=== PATIENT | female | born 1930 | race Caucasian/White ===

== ENCOUNTER → 2016-04-17 | Outpatient (CLI) | payer MEDICARE, OTHER ==
[~2016-04-17] MED LIST: ACHYD1T PO; ALN70T PO; AZIT1PAC8 PO; AZTH250C PO; CEFD300C3 PO; CEPH500C PO; CIPR250S2 PO; CYCL10TA45 PO; CYCL5TAB PO; HSCO125 PO; HYDR-3874 PO; HYDR118S10 PO; HYDR1TAB75 PO; NAPR500T3 PO; NFPRILOC40 PO; NITR100C3 PO; NITR50CA4 PO; OMEP20CA12 PO; PHEN100T26 PO; PHEN200T27 PO; TAMS0.4C9 PO; TMSL.4C PO
--- OUTSIDE RECORDS SUMMARY | 2016-04-17 08:37 | XMS REPORT | Continuity of Care Document ---
Author Author [facility] Organization [facility] Address Unknown Phone Unavailable Care Team Providers Care Quality Control Industrial Engineer Name Role Phone BRENDEN MCNEIL MD PCP Insurance Providers Payer Name Policy Number Subscriber Name Relationship W[employer] Medicare [id number] Chance Anderson Self / Same As Patient Comm Crossover Enter Ins Name [id number] Chance Anderson Self / Same As Patient Advance Directives Directive Response Recorded Date/Time Advance Directives No 06/26/14 6:42am Health Care Power of It Service Continuity Supervisor No 06/26/14 6:42am Organ Donor No 06/26/14 6:42am Resuscitation Status Full Code 06/26/14 6:42am Problems Medical Problems Problem Onset Date Status Neck sprain Unknown Active Abdominal pain Unknown Active Nausea and vomiting Unknown Active Urinary tract infectious disease Unknown Active generalized weakness Unknown Active Urinary tract infection Unknown Active Medications Medication Dose Route Sig Days/Qty Instructions Order Date Discontinued Date Status Azithromycin 1 Each PO X 1 DOSE 04/09/11 01/28/13 Discontinued Azithromycin 1 Tab PO DAILY 5 Days 04/09/11 01/28/13 Discontinued Omeprazole 20 Mg PO DAILY 04/09/11 06/12/13 Discontinued Alendronate Sodium 70 Mg PO WEEKLY weekly on Wednesday04/09/11 01/10/14 Discontinued Cefdinir (Omnicef) 1 Each PO TWICE A DAY 10 Days 04/09/11 01/28/13 Discontinued Acetaminophen/Hydrocodone Bitart 1 Each PO EVERY 4HRS PRN 20 Qty 01/28/13 Discontinued Acetaminophen/Hydrocodone Bitart 1 Tab PO EVERY 4HRS PRN PAIN 90 Qty 01 /22/14 04/16/14 Discontinued Cyclobenzaprine Hcl 10 Mg PO THREE TIMES A DAY PRN MUSCLE SPASMS 90 Qty 03/08/13 05/31/13 Discontinued Tamsulosin HCl 0.4 Mg PO DAILY@1800 14 Qty 05/31/13 06/27/13 Discontinued Acetaminophen/Hydrocodone Bitart 1-2 Ea PO EVERY 4HRS PRN PAIN 30 Qty 05/31/13 06/27/13 Discontinued Hyoscyamine Sulfate 0.125-0.25 Mg PO EVERY 4HRS PRN SPASMS 30 Qty 05/3106/27/13 Discontinued Phenazopyridine HCl 100 Mg PO THREE TIMES A DAY PRN PAIN 30 Qty 06/27/13 Discontinued Ciprofloxacin 250 Mg PO TWICE A DAY 7 Days 05/31/13 06/12/13 Discontinued Omeprazole 20 Mg PO DAILY 06/12/13 01/10/14 Discontinued Nitrofurantoin Macrocrystals 1 Cap PO TWICE A DAY 14 Qty 06/14/13 Discontinued Acetaminophen/Hydrocodone Bitart 1-2 Tab PO EVERY 4HRS PRN PAIN 30 Qty 06/14/13 06/27/13 Discontinued Acetaminophen/Hydrocodone Bitart (Lorcet Plus) 1 Each PO Q4HR PRN For PAIN 20 Days 06/27/13 01/10/14 Discontinued Cephalexin Monohydrate (Keflex) 1 Each PO THREE TIMES A DAY 30 Qty 06/19/14 Discontinued Phenazopyridine HCl 1 Each PO THREE TIMES A DAY PRN PAIN 15 Qty 06/19/14 Discontinued Nitrofurantoin Macrocrystal 100 Mg PO TWICE A DAY 14 Qty 06/26/14 Active Hydrocodone/Acetaminophen 1-2 Each PO EVERY 4HRS PRN PAIN 30 Qty Active Tamsulosin HCl 0.4 Mg PO BEDTIME 20 Qty 06/26/14 Active Social History Social History Problem Response Recorded Date/Time Alcohol Use Denies Use 06/26/2014 6:42am Recreational Drug Use No 06/26/2014 6:42am Recent Foreign Travel No 06/26/2014 6:42am Sexually Transmitted Disease No 06/26/2014 6:42am HIV/AIDS No 06/26/2014 6:42am Smoking Status Never a Smoker 06/26/2014 6:43am Query Response Start Date Stop Date Smoking Status Never a Smoker Hospital Discharge Instructions No hospital discharge instructions. Plan of Care No plan of care. Functional Status No functional status results. Allergies, Adverse Reactions, Alerts Allergen Type Severity Reaction Status Last Updated Penicillins ([id number]) Allergy Unknown NAUSEA Active 05/31/13 Sulfa (Sulfonamide Antibiotics) ([id number]) Allergy Mild Active metronidazole ([id number]) Adverse Reaction Mild Active 03/06/13 Immunizations Name Given Type Date of Pneumonia Vaccine 01/15/11 Historical Date of Influenza Vaccine 12/20/13 Historical Tetanus Booster (TDap) Unknown Historical Vital Signs Acute Vital Signs Vital Response Date/Time Temperature (Fahrenheit) 97.5 degrees F (97.6 - 99.5) Temperature (Calculated Celsius) 36.60717 degrees C (36.4 - 37.5) Temperature Source Temporal Pulse Rate (adult) 86 bpm (60 - 90) Respiratory Rate 16 bpm (12 - 24) O2 Sat by Pulse Oximetry 94 % (88 - 100) Blood Pressure 128/81 mm Hg Height (Feet) 5 feet Height (Inches) 3.00 inches Height (Calculated Centimeters) 160.541447 cm Weight (Pounds) 186 pounds Weight (Ounces) 0.0 oz Weight (Calculated Grams) 76597.182 gm Weight (Calculated Kilograms) 84.704813 kilograms Calculated BMI 30.95 Results Laboratory Results Test Name Result Units Flags Reference Collection Date/Time Result Date/ Time Comments Sodium Level 146 MMOL/L H 135-145 06/06/2014 9:10am 06/06/2014 9:33am Potassium Level 3.7 MMOL/L 3.6-5.0 06/06/2014 9:10a06/06/2014 9:33am Chloride Level 108 MMOL/L H 98-107 06/06/2014 9:10am 06/06/2014 9:33am Carbon Dioxide Level 26 MMOL/L 21-32 06/06/2014 9:10am 06/06/2014 9: 33am Blood Urea Nitrogen 18 MG/DL 7-18 06/06/2014 9:10am 06/06/2014 9:33am Creatinine 0.70 MG/DL 0.60-1.30 06/06/2014 9:10a06/06/2014 9:33am BUN/Creatinine Ratio 26 06/06/2014 9:10a06/06/2014 9:33am Estimat Glomerular Filtration Rate > 60 06/06/2014 9:2014 9:33am GFR INTERPRETIVE DATA UNITS FOR ESTIMATED GFR (eGFR): mL/min/1.73 M2 REFERENCE RANGE FOR ESTIMATED GFR (eGFR) eGFR NORMAL eGFR >60 MODERATELY DECREASED eGFR 30-59 SEVERLY DECREASED eGFR 15-29 KIDNEY FAILURE <15 (OR DIALYSIS) Glucose Level 92 MG/DL 70-105 06/06/2014 9:10a06/06/2014 9:33am Calcium Level 9.0 MG/DL 8.5-10.1 06/06/2014 9:10a06/06/2014 9:33am White Blood Count 4.7 10^3/uL 4.3-11.0 06/19/2014 1:0506/19/2014 1: 32pm Red Blood Count 4.59 10^6/uL 4.35-5.85 06/19/2014 1:06/19/2014 1: 32pm Hemoglobin 13.5 G/DL 11.5-16.0 06/19/2014 1:06/19/2014 1:32pm Hematocrit 41 % 35-52 06/19/2014 1:06/19/2014 1:32pm Mean Corpuscular Volume 88 FL 80-99 06/19/2014 1:06/19/2014 1: 32pm Mean Corpuscular Hemoglobin 29 PG 25-34 06/19/2014 1:06/19/2014 1: 32pm Mean Corpuscular Hemoglobin Concent 33 G/DL 32-36 06/19/2014 1:06/2014 1:32pm Red Cell Distribution Width 14.5 % 10.0-14.5 06/19/2014 1:2014 1:32pm Platelet Count 196 10^3/uL 130-400 06/19/2014 1:06/19/2014 1:32pm Mean Platelet Volume 10.7 FL H 7.4-10.4 06/19/2014 1:06/19/2014 1: 32pm Neutrophils (%) (Auto) 62 % 42-75 06/19/2014 1:06/19/2014 1:32pm Lymphocytes (%) (Auto) 25 % 12-44 06/19/2014 1:06/19/2014 1:32pm Monocytes (%) (Auto) 10 % 0-12 06/19/2014 1:06/19/2014 1:32pm Eosinophils (%) (Auto) 3 % 0-10 06/19/2014 1:06/19/2014 1:32pm Basophils (%) (Auto) 1 % 0-10 06/19/2014 1:06/19/2014 1:32pm Neutrophils # (Auto) 2.9 X 10^3 1.8-7.8 06/19/2014 1:06/19/2014 1: 32pm Lymphocytes # (Auto) 1.2 X 10^3 1.0-4.0 06/19/2014 1:06/19/2014 1: 32pm Monocytes # (Auto) 0.5 X 10^3 0.0-1.0 06/19/2014 1:06/19/2014 1: 32pm Eosinophils # (Auto) 0.1 10^3/uL 0.0-0.3 06/19/2014 1:06/19/2014 1 :32pm Basophils # (Auto) 0.0 10^3/uL 0.0-0.1 06/19/2014 1:06/19/2014 1: 32pm Sodium Level 142 MMOL/L 135-145 06/19/2014 1:06/19/2014 1:52pm Potassium Level 4.2 MMOL/L 3.6-5.0 06/19/2014 1:06/19/2014 1:52pm SPECIMEN IS 2+ HEMOLYZED. Chloride Level 109 MMOL/L H 98-107 06/19/2014 1:pm 06/19/2014 1:52pm Carbon Dioxide Level 23 MMOL/L 21-32 06/19/2014 1:05pm 06/19/2014 1: 52pm Blood Urea Nitrogen 20 MG/DL H 7-18 06/19/2014 1:05pm 06/19/2014 1:52pm Creatinine 0.65 MG/DL 0.60-1.30 06/19/2014 1:05pm 06/19/2014 1:52pm BUN/Creatinine Ratio 31 06/19/2014 1:05pm 06/19/2014 1:52pm Estimat Glomerular Filtration Rate > 60 06/19/2014 1:05pm 2014 1:52pm GFR INTERPRETIVE DATA UNITS FOR ESTIMATED GFR (eGFR): mL/min/1.73 M2 REFERENCE RANGE FOR ESTIMATED GFR (eGFR) eGFR NORMAL eGFR >60 MODERATELY DECREASED eGFR 30-59 SEVERLY DECREASED eGFR 15-29 KIDNEY FAILURE <15 (OR DIALYSIS) Glucose Level 104 MG/DL 70-105 06/19/2014 1:05pm 06/19/2014 1:52pm Calcium Level 9.2 MG/DL 8.5-10.1 06/19/2014 1:05pm 06/19/2014 1:52pm Procedures Procedure Status Date Provider(s) Extracorporeal shock wave lithotripsy (ESWL) completed 06/26/14 KATHARINE WINSLOW MD Encounters Encounter Location Date/Time Registered Surgical Day Care Via [facility] 06/26/14 6:05am Registered Clinic Via [facility] 06/19/14 12:47pm Registered Clinic Via [facility] 06/06/14 8:38am
--- NOTE | 2016-04-18 20:18 | ECHOCARDIOGRAPHY REPORT ---
PROCEDURE PHYSICIAN: BRUNILDA PRICE DATE OF PROCEDURE: 04/17/2016 TWO DIMENSIONAL ECHOCARDIOGRAM REPORT PRIMARY PHYSICIAN: OTHER PHYSICIAN: REFERRING PHYSICIAN: Dr. Hercules ORDERING PHYSICIAN: INDICATION FOR THE PROCEDURE: 1. Hypertension. 2. Palpitations. MEASUREMENTS DERIVED VALUES LV DIAMETER (LAX) NORMALS NORMALS Diastolic 3.2 (3.6-5.2) Eject. Fract. 50% (60%+/-6%) Systolic (2.3-3.9) Diastolic Vol. % Shortening (0.22-0.42) Systolic Vol. Aortic Root IVS THICKNESS Diastolic 1.2 (0.6-1.1) LVPW THICKNESS Diastolic 1 (0.6-1.1) LA DIAMETER Systolic 4.3 (2.1-3.7) FINDINGS: 1. Technically suboptimal study. 2. The left ventricle is normal in size with mild hypertrophy noted at the base of the septum. Systolic function evaluation showed subtle hypokinesia at the inferior wall. Estimated ejection fraction 50%. 3. The left atrium is dilated. No clot or thrombus were seen within the left atrium. 4. The right atrium and right ventricle are normal in size. No clot or thrombus were seen within the right side. 5. Mitral valve is calcified with mild mitral regurgitation noted by color Doppler flow. No mitral valve prolapse. No mitral valve stenosis. 6. Aortic valve leaflets were not well visualized. No significant aortic valve stenosis or regurgitation was seen. 7. Tricuspid valve is normal in morphology with mild tricuspid regurgitation noted by color Doppler flow. Doppler across tricuspid valve estimated pulmonary artery pressure of 28+ right atrial pressure. 8. Pulmonic valve is functioning normally. 9. No pericardial effusion. IN CONCLUSION: 1. Mild left ventricular hypertrophy noted at the base of the septum. Systolic function is preserved with ejection fraction 50%. Subtle hypokinesia at the inferior wall. 2. Left atrial dilatation. 3. 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 Aortic valve leaflets were not well visualized. No significant aortic stenosis or regurgitation was seen. 4. Tricuspid valve regurgitation. 5. Estimated pulmonary artery pressure of 35 mmHg. Job ID: [id number] Dictated Date: 04/17/2016 16:57:00 Solutions Executive Security Date: 04/18/2016 20:15:06 / nikky
== END ==
LOC: CARD 08:33
PROVIDERS: ATTEND Internal Medicine Cardiovascular Disease
DX: I10 Essential (primary) hypertension (principal); R00.2 Palpitations; E66.9 Obesity, unspecified; R94.31 Abnormal electrocardiogram [ECG] [EKG]
CPT/HCPCS: 93306

== ENCOUNTER → 2016-04-29 | Outpatient (CLI) | payer MEDICARE, OTHER ==
[~2016-04-29] MED LIST changes: +CATHETER FLUSH 10 ML SYR IV PRN; +REGADENOSON 0.4 MG/5 ML SYR (LEXISCAN) IV ONE
--- OUTSIDE RECORDS SUMMARY | 2016-04-29 08:30 | XMS REPORT | Continuity of Care Document ---
Author Author [facility] Organization [facility] Address Unknown Phone Unavailable Care Team Providers Care Plate Grainer Apprentice Name Role Phone BRENDEN MCNEIL MD PCP Insurance Providers Payer Name Policy Number Subscriber Name Relationship [employer] Medicare [id number] Chance Anderson Self / Same As Patient Comm Crossover Enter Ins Name [id number] Chance Anderson Self / Same As Patient Advance Directives Directive Response Recorded Date/Time Advance Directives No 06/26/14 6:42am Health Care Power of Farm Mechanic No 06/26/14 6:42am Organ Donor No 06/26/14 [...] Type Severity Reaction Status Last Updated Penicillins ([id number]) Allergy Unknown NAUSEA Active 05/31/13 Sulfa (Sulfonamide Antibiotics) ([id number]) Allergy Mild Active metronidazole ([id number]) Adverse Reaction Mild Active 03/06/13 Immunizations Name Given Type Date of Pneumonia Vaccine 01/15/11 Historical Date of Influenza Vaccine 12/20/13 Historical Tetanus Booster (TDap) Unknown Historical Vital Signs Acute Vital Signs Vital Response Date/Time Temperature (Fahrenheit) 97.5 degrees F (97.6 - 99.5) Temperature (Calculated Celsius) 36.21708 degrees C (36.4 - 37.5) Temperature Source Temporal Pulse Rate (adult) 86 bpm (60 - 90) Respiratory Rate 16 bpm (12 - 24) O2 Sat by Pulse Oximetry 94 % (88 - 100) Blood Pressure 128/81 mm Hg Height (Feet) 5 feet Height (Inches) 3.00 inches Height (Calculated Centimeters) 160.100789 cm Weight (Pounds) 186 pounds Weight (Ounces) 0.0 oz Weight (Calculated Grams) 74580.182 gm Weight (Calculated Kilograms) 84.191899 kilograms Calculated BMI 30.95 Results Laboratory Results [...] Location Date/Time Registered Surgical Day Care [facility] 06/26/14 6:05am Registered Clinic [facility] 06/19/14 12:47pm Registered Clinic [facility] 06/06/14 8:38am
[2016-04-29 09:35] VITALS: BP 162/82
[2016-04-29 09:40] VITALS: BP 148/85
[2016-04-29 09:42] VITALS: BP 132/64
--- NOTE | 2016-05-01 16:06 | STRESS TEST ---
PROCEDURE PHYSICIAN: BRUNILDA PRICE DATE OF PROCEDURE: 04/29/2016 LEXISCAN MYOVIEW STRESS TEST REPORT: REFERRING PHYSICIAN: Dr. Hercules. INDICATION FOR THE PROCEDURE: 1. Hypertension. 2. Palpitations. BASELINE HEART RATE: 69 BASELINE BLOOD PRESSURE: 162/82 BASELINE EKG: Sinus rhythm with occasional PVC. IN SUMMARY: The patient was injected with 9.78 mCi of technetium 99 Myoview and the resting images were obtained. Then the patient received 0.4 mg of Lexiscan followed by 31.8 mCi of technetium 99 Myoview. Throughout the test, there were no EKG changes. The resting and stress images were reviewed and compared in the short axis, horizontal long axis, and vertical long axis views. Review of the images showed breast attenuation with reversible ischemia involving the mid to apical anterolateral wall and inferolateral wall. SSS is 8, SDS 8. Transient ischemic dilatation with TID value 1.29. On the gated images, the left ventricle appeared to be prominent with hypokinesia involving the lateral wall. Calculated ejection fraction 58%. IN CONCLUSION: 1. The patient tolerated Lexiscan well. 2. Breast attenuation with mild ischemia involving the basal to mid anterolateral and inferolateral wall. 3. Transient ischemic dilatation with TID value 1.29. 4. Slightly prominent left ventricle with hypokinesia involving the lateral wall. Calculated ejection fraction 58%. Job ID: [id number] Dictated Date: 04/29/2016 15:49:00 Logistics Technician Date: 04/30/2016 08:39:27 / nikky SPARKS
== END ==
LOC: CARD 08:27
PROVIDERS: ATTEND Internal Medicine Cardiovascular Disease
DX: I10 Essential (primary) hypertension (principal); R00.2 Palpitations; R94.31 Abnormal electrocardiogram [ECG] [EKG]; E66.9 Obesity, unspecified
CPT/HCPCS: 78452; 93017

== ENCOUNTER 2016-05-04 07:38 | Day surgery (SDC) | payer MEDICARE, OTHER ==
[2016-05-04] VITALS (11 sets, daily range): BP systolic 129–158; BP diastolic 68–88
[~2016-05-04] VITALS: Ht 161.3 cm; Wt 83.9 kg
[~2016-05-04 07:38] MED LIST changes: -CATHETER FLUSH 10 ML SYR IV PRN; -REGADENOSON 0.4 MG/5 ML SYR (LEXISCAN) IV ONE
--- OUTSIDE RECORDS SUMMARY | 2016-05-04 07:42 | XMS REPORT | Continuity of Care Document ---
Author Author [facility] Organization [facility] Address Unknown Phone Unavailable Care Team Providers Care Tour Agent Name Role Phone BRENDEN MCNEIL MD PCP Insurance Providers Payer Name Policy Number Subscriber Name Relationship [employer] Medicare [id number] Chance Anderson Self / Same As Patient Comm Crossover Enter Ins Name [id number] Chance Anderson Self / Same As Patient Advance Directives Directive Response Recorded Date/Time Advance Directives No 06/26/14 6:42am Health Care Power of Finance And Administration Manager No 06/26/14 6:42am Organ Donor No 06/26/14 [...] Type Severity Reaction Status Last Updated Penicillins ([id number]) Allergy Unknown NAUSEA Active 05/31/13 Sulfa (Sulfonamide Antibiotics) ([id number]) Allergy Mild Active metronidazole ([id number]) Adverse Reaction Mild Active 03/06/13 Immunizations Name Given Type Date of Pneumonia Vaccine 01/15/11 Historical Date of Influenza Vaccine 12/20/13 Historical Tetanus Booster (TDap) Unknown Historical Vital Signs Acute Vital Signs Vital Response Date/Time Temperature (Fahrenheit) 97.5 degrees F (97.6 - 99.5) Temperature (Calculated Celsius) 36.55731 degrees C (36.4 - 37.5) Temperature Source Temporal Pulse Rate (adult) 86 bpm (60 - 90) Respiratory Rate 16 bpm (12 - 24) O2 Sat by Pulse Oximetry 94 % (88 - 100) Blood Pressure 128/81 mm Hg Height (Feet) 5 feet Height (Inches) 3.00 inches Height (Calculated Centimeters) 160.737567 cm Weight (Pounds) 186 pounds Weight (Ounces) 0.0 oz Weight (Calculated Grams) 39021.182 gm Weight (Calculated Kilograms) 84.621603 kilograms Calculated BMI 30.95 Results Laboratory Results [...] Location Date/Time Registered Surgical Day Care [facility] 06/26/14 6:05am Registered Clinic Via [facility] 06/19/14 12:47pm Registered Clinic Via [facility] 06/06/14 8:38am
[2016-05-04] MEDS ORDERED: HEParin (CATH LAB) 2,000 ML IV ONE (07:53)
[2016-05-04] MEDS ORDERED: LIDOCAINE 1% INJ 20 ML (XYLOCAINE) VIAL ONE (07:53)
[2016-05-04] MEDS ORDERED: NS IV 1000 ML 1,000 ML ONE (07:53)
[2016-05-04] MEDS ORDERED: NS IV 1000 ML 1,000 ML IV SCH ×2 (08:30→11:54)
[2016-05-04 08:40] LABS: BILIRUBIN,URINE NEGATIVE (NEGATIVE); KETONES,URINE NEGATIVE (NEGATIVE); LEUKOCYTE ESTERASE ,URINE 1+ (NEGATIVE); NITRITE,URINE NEGATIVE (NEGATIVE); PH,URINE 5 (5-9); PROTEIN,URINE NEGATIVE (NEGATIVE); UROBILINOGEN,URINE NORMAL (NORMAL)
[2016-05-04 08:41] LABS: MEAN PLATELET VOLUME 11.1 FL (7.4-10.4); RED BLOOD COUNT 4.71 10^6/uL (4.35-5.85); WHITE BLOOD COUNT 4.1 10^3/uL (4.3-11.0)
[2016-05-04 08:51] LABS: INR 1.1 (0.8-1.4); PROTHROMBIN TIME PATIENT 14.1 SEC (12.2-14.7)
--- NOTE | 2016-05-04 08:51 | Diagnostic Imaging Report ---
Portable AP view of the chest. INDICATION: Shortness of breath, palpitations. FINDINGS: The heart size is moderately enlarged. There is mild interstitial thickening likely related to scarring but no significant vascular congestion, focal consolidation, or pulmonary edema. No effusion or pneumothorax. The mediastinum and lisandra appear similar to 11/08/2014. Cervical spine fusion hardware seen. Surgical clips in the upper right abdomen noted. IMPRESSION: Cardiomegaly. Dictated by: Dictated on workstation # [id number]
[2016-05-04 08:59] LABS: ALANINE AMINOTRANSFERASE 15 U/L (0-55); ALBUMIN 3.7 G/DL (3.2-4.5); ANION GAP 10 MMOL/L (5-14); ASPARTATE AMINO TRANSFERASE 19 U/L (5-34); BILIRUBIN,TOTAL 0.8 MG/DL (0.1-1.0); BLOOD UREA NITROGEN 16 MG/DL (7-18); BUN/CREATININE RATIO 21; CALCIUM 9.1 MG/DL (8.5-10.1); CARBON DIOXIDE 27 MMOL/L (21-32); CHLORIDE 107 MMOL/L (98-107); CHOLESTEROL 193 MG/DL (< 200); CREATININE SERUM 0.76 MG/DL (0.60-1.30); DIRECT LDL 102 MG/DL (1-129); GFR ESTIMATED > 60; GLUCOSE 83 MG/DL (70-105); POTASSIUM 3.9 MMOL/L (3.6-5.0); SODIUM 144 MMOL/L (135-145); TOTAL PROTEIN 6.2 G/DL (6.4-8.2); TRIGLYCERIDES 76 MG/DL (<150); VLDL CHOLESTEROL 15 MG/DL (5-40)
--- NOTE | 2016-05-04 10:48 | Cardiac Procedure Note-CS/ASA ---
Pre-Procedure Note Pre-Op Procedure Note H&P Reviewed The H&P was reviewed, patient examined and no changes noted. Date H&P Reviewed: May 04, 2016 Time H&P Reviewed: 10:47 Conscious Sedation Pre-Proced Time Reviewed: 10:47 ASA Class: 3 Airway Mallampati Classification: ([place] appropriate class) I. II. III, IV Lungs Heart ASA score ASA 1: a normal healthy patient ASA 2: a patient with a mild systemic disease (mid diabetes, controlled hypertension, obesity x ASA 3: a patient with a severe systemic disease that limits activity (angina , COPD, prior Myocardial infarction) ASA 4: a patient with an incapacitating disease that is a constant threat to life (CHF, renal failure) ASA 5: a moribund patient not expected to survive 24 hrs. (ruptured aneurysm) ASA 6: a declared brain patient whose organs are being harvested. For emergent operations, add the letter E after the classification Grade 3 Sedation Plan: Analgesia, Amnesia, Plan communicated to team members, Discussed options with patient/fam, Discussed risks with patient/fam Note The patient is an appropriate candidate to undergo the planned procedure, sedation, and anesthesia. The patient immediately re-assessed prior to indication. BRUNILDA PRICE MD May 04, 2016 10:47
[2016-05-04] MEDS ORDERED: MIDAZOLAM 5 MG/5 ML (VERSED) VIAL ONE (11:09)
[2016-05-04] MEDS ORDERED: fentaNYL INJECTION 100 MCG/2 ML AMP ONE (11:09)
--- NOTE | 2016-05-04 11:55 | Discharge Inst-Post CATH ---
Discharge Inst-CATH Post Cardiac Cath D/C Inst Follow Up/Plan Appointment with Dr. Paula's office in 2-4 weeks CARDIAC CATH DISCHARGE INSTRUCTIONS *Hold Metformin for 48 hours post heart cath. ACTIVITY * Go Home directly and rest. * Limit activity of the leg (or wrist if it was used) for 7 days including aerobics, swimming, jogging, bicycling, etc. * Restrict stair-climbing for 7 days if possible, if not, climb up with your non -cath leg, then bring together on the same step. * Avoid lifting, pushing, pulling or excessive movement of the affected extremity for 7 days. * Customary sexual activity may be resumed after 2 days-use caution not to use a position that strains or causes pain to the affected extremity. * No driving for 24 hours. * NO SMOKING. * Avoid straining for bowel movements for 7 days. * Gentle walking on level ground is allowed. * Returning to work will depend on the type of procedure and the results. Your doctor will discuss this with you. CALL YOUR DOCTOR FOR ANY OF THE FOLLOWING: *If bleeding from the puncture site occurs- Apply gentle pressure to site with clean cloth and call your doctor or EMS. * If a knot or lump forms under the skin, increases in size, or causes pain. * If bruising appears to be worsening or moving further down your leg instead of disappearing. * Temperature above 101 F. CARE OF YOUR GROIN INCISION; * Bruising or purple discoloration of the skin near the puncture site is common. * You may shower only, no bathtub bathing for 5 days. Be careful to avoid slipping as your leg may feel stiff. * If a closure device was used on your femoral artery, please see the attached guide regarding care of the device and your leg. * REMOVE the dressing from your groin the next day after your procedure in the shower. CARE OF YOUR WRIST INCISION; * Bruising or purple discoloration of the skin near the puncture site is common. * You may shower. * DO NOT submerge wrist. * Remove dressing in 24 hours. BRUNILDA PAULA MD May 04, 2016 11:55
[2016-05-04] MEDS ORDERED: PATIENT MAY USE OWN MEDS, ALL PO SCH (12:00)
--- NOTE | 2016-05-04 19:00 | DISCHARGE SUMMARY ---
PROCEDURE PHYSICIAN: BRUNILDA PRICE DATE OF PROCEDURE: 05/04/2016 REFERRING PHYSICIAN: Dr. Hercules. BRIEF HISTORY: Mrs. Anderson is an 86-year-old lady with recurrent chest pain, had an abnormal stress test. She was scheduled for left heart catheterization, possible PTCA. PROCEDURE NOTE: After explaining the procedure to the patient, all pros and cons were explained. All questions were answered. The patient signed a consent, then she was placed on the cardiac catheterization laboratory. The right groin was prepped in a sterile fashion. Local anesthesia applied. A 6-[place] Island[place] sheath was placed in the right femoral artery. I was unable to advance the J-wire across the iliac artery. I used a [employer] wire, with a Olivia right. Reach up to aorta and aortic arch appeared to be prominent. I was unable to intubate the right coronary artery. Exchanged over a long J-wire into Olivia left and left coronary angiogram was done. Then the pigtail catheter advanced to the left ventricular cavity. Pressure was measured. Pullback LV to aorta. Thoracic aortogram was done. Then I pulled the catheter down to the abdominal aorta. An abdominal aortogram was done. At that point, I advanced a long J-wire again. 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 At the end of the procedure, sheath was removed. Mynx device deployed. Hemostasis achieved. FINDINGS: HEMODYNAMICS: LV pressure 126/14, end-diastolic pressure 14, aortic pressure 130/64, mean of 92. ANATOMY: 1. LEFT MAIN CORONARY ARTERY: The left main coronary artery is bifurcating to left anterior descending and left circumflex artery with no obstructive disease. 2. LEFT ANTERIOR DESCENDING ARTERY: The left anterior descending artery is moderate in size. 40% stenosis in the proximal LAD. 40 to 50% stenosis at the mid LAD, nonobstructive disease. 3. LEFT CIRCUMFLEX ARTERY: The left circumflex artery is moderate in size with mild . Dominant artery, nonobstructive disease. 4. 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 5. LEFT VENTRICULOGRAM: No left ventriculogram was done. Left ventricular end-diastolic pressure is normal. 6. THORACIC AORTOGRAM/AORTIC ROOT ANGIOGRAM: Aortogram/aortic root angiogram showed prominent ascending aorta. No dissection or aneurysm. 7. ABDOMINAL AORTOGRAM: Abdominal aortogram was done to evaluate the bifurcation and the iliac artery. There is a small infrarenal abdominal aortic aneurysmal dilatation. Atherosclerotic plaque was noted. 40 to 50% stenosis at the right common iliac artery, nonobstructive disease. CONCLUSION: 1. 40% stenosis at the proximal LAD. 40 to 50% stenosis at the mid LAD, nonobstructive disease. 2. Dominant circumflex artery with no obstructive disease. 3. 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 4. Slightly prominent ascending aorta and aortic arch. 5. Small aneurysmal dilatation in the abdominal aorta infrarenally with mild to moderate disease at the right iliac artery, nonobstructive disease. DISCUSSION AND RECOMMENDATION: Medical therapy is recommended. No intervention is warranted. FINAL DIAGNOSES: 1. Chest pain, nonspecific etiology. 2. Coronary artery disease. 3. Hypertension. 4. Hyperlipidemia. Job ID: [id number] Dictated Date: 05/04/2016 12:00:15 Pattern And Chain Maker Date: 05/04/2016 18:59:38/[place]
== END 2016-05-04 16:03 | disposition home or self-care (01) ==
LOC: CATH 07:38
PROVIDERS: ATTEND Internal Medicine Cardiovascular Disease
DX: R07.89 Other chest pain (principal); R94.39 Abnormal result of other cardiovascular function study; I70.0 Atherosclerosis of aorta; I25.10 Atherosclerotic heart disease of native coronary artery without angina pectoris; I10 Essential (primary) hypertension; E78.5 Hyperlipidemia, unspecified; E66.9 Obesity, unspecified; Z68.32 Body mass index [BMI] 32.0-32.9, adult
CPT/HCPCS: 36415; 71010; 75625; 80053; 80061; 81000; 85027; 85610; 85730; 87081; 93458; 93567

== ENCOUNTER → 2016-07-09 | Outpatient (CLI) | payer MEDICARE, OTHER ==
--- NOTE | 2016-07-09 13:51 | Diagnostic Imaging Report ---
PROCEDURE: CT abdomen and pelvis without contrast. TECHNIQUE: Multiple contiguous axial images were obtained through the abdomen and pelvis without the use of intravenous contrast. INDICATION: Bilateral lower quadrant pain. FINDINGS: The heart size is enlarged. No pericardial effusion. Mitral valve annular calcifications are seen. The lung bases are clear. The liver, the spleen, the pancreas, and the adrenals appear unremarkable for an unenhanced exam. Cholecystectomy clips are seen. The right kidney demonstrates a lower pole nonobstructive stone measuring 4 mm. Low-attenuation lesions in the kidneys are similar to a 2015 CT scan suggestive of cysts. The abdominal aorta demonstrates mild aneurysmal dilatation measuring up to 2.7 cm just proximal to the aortic bifurcation. The colon demonstrates moderate to large amounts of fecal material. No bowel obstruction. Numerous diverticula are seen in the sigmoid and descending colon. No diverticulitis. No significant free fluid or fluid collection in the abdomen or pelvis is seen. There is prominent left convexity scoliosis of the lumbar spine. Degenerative changes in the discs and facet joints are seen. There is minimal hematoma in the right groin probably related to prior procedure. IMPRESSION: 1. Diverticulosis. No diverticulitis. 2. A 4 mm nonobstructive stone in the lower pole of the left kidney. 3. 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 Dictated by: Dictated on workstation # [id number]
== END ==
LOC: RAD 12:16
PROVIDERS: ATTEND Physician Assistant
DX: R10.9 Unspecified abdominal pain (principal); R94.31 Abnormal electrocardiogram [ECG] [EKG]; I10 Essential (primary) hypertension; R00.2 Palpitations; R60.0 Localized edema; K57.30 Diverticulosis of large intestine without perforation or abscess without bleeding; N20.0 Calculus of kidney; I71.4 Abdominal aortic aneurysm, without rupture
CPT/HCPCS: 74176

== ENCOUNTER → 2016-10-06 | Outpatient (CLI) | payer MEDICARE, OTHER ==
--- NOTE | 2016-10-06 20:30 | Diagnostic Imaging Report ---
EXAMINATION: Ultrasound of the left breast. INDICATION: Left breast pain. FINDINGS: The diagnostic mammogram performed earlier today failed to show any acute abnormality of the left breast. On this study, there is no discrete solid or cystic mass identified. There is no sign of an abscess either. The microcalcifications in the mid lateral aspect of the left breast seen on mammogram could not be identified on this study. Those microcalcifications are indeterminate. A stereotactic biopsy will be recommended to exclude malignancy. IMPRESSION: 1. There is no evidence for a solid mass or for an acute abnormality to account for the patient's left breast pain. 2. The microcalcifications seen on mammogram could not be identified. These findings are indeterminate but suspicious for malignancy. A stereotactic biopsy will be recommended. 3. These results were discussed with JORGE Cano. ACR BI-RADS Category 4: Suspicious abnormality. Dictated by: Dictated on workstation # [id number]
--- NOTE | 2016-10-07 06:56 | Diagnostic Imaging Report ---
Digital bilateral diagnostic mammogram with tomosynthesis. INDICATION: Left breast pain. This study was compared to prior exams of 07/01/2007, and at this time the patient does complain of pain in the left breast. There are scattered fibroglandular densities in both breasts which could obscure a lesion. These do not appear to have changed significantly since the prior exam. 15 cm from the left nipple there is a group of microcalcifications but there is no acute abnormality of the left breast to account for the patient's pain. IMPRESSION: 15 cm from the nipple there is a group of microcalcifications. Ultrasound is pending for further evaluation. ACR BI-RADS Category 0: Incomplete. (Needs additional imaging evaluation). Result letter will be mailed to the patient. Note: At least 10% of breast cancer is not imaged by mammography. Dictated on workstation # [id number]
== END ==
LOC: RAD 10:33
PROVIDERS: ATTEND Internal Medicine
DX: Z12.31 Encounter for screening mammogram for malignant neoplasm of breast (principal); R92.0 Mammographic microcalcification found on diagnostic imaging of breast; N64.4 Mastodynia
CPT/HCPCS: 76642; 77066

== ENCOUNTER → 2016-10-14 | Outpatient (CLI) | payer MEDICARE, OTHER ==
[~2016-10-14] VITALS: Ht 161.3 cm; Wt 83.9 kg
[~2016-10-14] MED LIST changes: +LIDOCAINE 1% INJ 20 ML (XYLOCAINE) VIAL INJ ONE; -NAPR500T3 PO; +NAPR500T4 PO; +NS (IVPB) 100 ML ONE
[2016-10-14 10:05] VITALS: BP 128/72
[2016-10-14 11:35] VITALS: BP 124/69
--- NOTE | 2016-10-15 22:42 | Diagnostic Imaging Report ---
Stereotactic biopsy left breast INDICATION: Abnormal mammogram The recent diagnostic mammogram performed on 10/06/16 noted a group of microcalcifications deep in the lateral aspect of the left breast. These microcalcifications were deemed to be indeterminate and stereotactic biopsy was recommended to exclude malignancy. Following aseptic preparation of the skin and administration of local anesthesia the area in question was biopsied using a stereotactic device. Multiple samples were obtained. The specimen radiograph reveals that some of the calcification in question were included. Following the procedure a clip was inserted into the biopsy site. However, the clip did not deploy. A second clip was inserted but it did not deploy either. On the post procedure mammogram performed at a separate workstation there are still a few calcifications present in the area of the biopsy. These could prove as a landmark if the specimen is indeed related to malignant process. The patient tolerated the procedure well and was dismissed in good condition. IMPRESSION: There has been a successful stereotactic biopsy of the calcifications in question in the lateral aspect of the left breast. A final pathology report is pending. Dictated by: Dictated on workstation # [id number]
== END ==
LOC: RAD 09:31
PROVIDERS: ATTEND Nurse Practitioner
DX: R92.0 Mammographic microcalcification found on diagnostic imaging of breast (principal)
CPT/HCPCS: 19081; 88305

== ENCOUNTER → 2016-12-17 | Outpatient (CLI) | payer MEDICARE, OTHER ==
[~2016-12-17] MED LIST changes: -LIDOCAINE 1% INJ 20 ML (XYLOCAINE) VIAL INJ ONE; +NAPR500T3 PO; -NAPR500T4 PO; -NS (IVPB) 100 ML ONE
--- NOTE | 2016-12-17 19:38 | Diagnostic Imaging Report ---
PA and lateral views of the chest. INDICATION: Cough. FINDINGS: The lungs are hyperinflated. Interstitial prominence appears to be chronic with no definitive congestion or patty pulmonary edema. The heart size is moderately enlarged. No effusion or pneumothorax. The mediastinum and lisandra appear unremarkable. Surgical clips in the upper abdomen seen. IMPRESSION: COPD. Cardiomegaly. Dictated by: Dictated on workstation # [id number]
== END ==
LOC: RAD 14:28
PROVIDERS: ATTEND Internal Medicine
DX: J44.9 Chronic obstructive pulmonary disease, unspecified (principal); I51.7 Cardiomegaly
CPT/HCPCS: 71020

== ENCOUNTER → 2017-04-16 | Outpatient (CLI) | payer MEDICARE, OTHER ==
[~2017-04-16] MED LIST changes: +NAPR-915 PO; -NAPR500T3 PO
--- NOTE | 2017-04-16 14:52 | Diagnostic Imaging Report ---
INDICATION: Six-month followup of left breast calcifications. Patient had calcifications in the left breast stereotactically biopsied with a benign result. COMPARISON: 10/06/2016 and 04/05/2015. TECHNIQUE: Digital diagnostic mammography was performed of the left breast with a Computer Aided Detection (CAD) system. FINDINGS: There has been reduction in calcifications in the upper outer left breast status post biopsy. No clip is present. The parenchymal pattern is stable. There is a benign intraparenchymal lymph node present. No new calcifications are seen. The axillae are unremarkable. IMPRESSION: Stable left mammogram, status post stereotactic biopsy. The patient should return in 6 months for bilateral mammography. ACR BI-RADS Category 2: Benign findings. Result letter will be mailed to the patient. Note: At least 10% of breast cancer is not imaged by mammography. Dictated by: Dictated on workstation # [id number]
== END ==
LOC: RAD 08:12
PROVIDERS: ATTEND Nurse Practitioner
DX: R92.1 Mammographic calcification found on diagnostic imaging of breast (principal)

== ENCOUNTER → 2017-05-21 | Outpatient (CLI) | payer MEDICARE, OTHER | LOC: CARD 10:49 | PROVIDERS: ATTEND Internal Medicine Cardiovascular Disease | DX: I10 Essential (primary) hypertension (principal); E66.9 Obesity, unspecified; R00.2 Palpitations; R60.0 Localized edema; R09.81 Nasal congestion; R06.00 Dyspnea, unspecified; I08.3 Combined rheumatic disorders of mitral, aortic and tricuspid valves | CPT/HCPCS: 93306 ==

== ENCOUNTER 2017-07-05 21:00 | Outpatient (CLI) | payer MEDICARE, OTHER | END 2017-07-06 06:42 | disposition home or self-care (01) | LOC: SLEEP 21:00 | PROVIDERS: ATTEND Internal Medicine Cardiovascular Disease | DX: G47.33 Obstructive sleep apnea (adult) (pediatric) (principal) | CPT/HCPCS: 95811 ==

== ENCOUNTER 2017-09-01 19:59 | Outpatient (CLI) | payer MEDICARE, OTHER | END 2017-09-02 07:05 | disposition home or self-care (01) | LOC: SLEEP 19:59 | PROVIDERS: ATTEND Nurse Practitioner | DX: G47.33 Obstructive sleep apnea (adult) (pediatric) (principal) | CPT/HCPCS: 95811 ==

== ENCOUNTER → 2017-11-29 | Outpatient (CLI) | payer MEDICARE, OTHER ==
--- NOTE | 2017-11-29 12:25 | Diagnostic Imaging Report ---
INDICATION: Routine screening. COMPARISON: 10/06/2016 and 04/05/2015. TECHNIQUE: 2D and 3D bilateral screening mammography was performed with CAD. FINDINGS: Scattered fibroglandular densities are identified bilaterally. Scattered benign-appearing parenchymal and vascular calcifications are noted. Benign-appearing nodular densities are stable bilaterally, consistent with intramammary lymph nodes. No spiculated mass or malignant appearing microcalcifications are seen. The axillae are unremarkable. IMPRESSION: No mammographic features suspicious for malignancy are identified. ACR BI-RADS Category 2: Benign findings. Result letter will be mailed to the patient. Note: At least 10% of breast cancer is not imaged by mammography. Dictated by: Dictated on workstation # [id number]
== END ==
LOC: RAD 09:03
PROVIDERS: ATTEND Nurse Practitioner
DX: Z12.31 Encounter for screening mammogram for malignant neoplasm of breast (principal)
CPT/HCPCS: 77067

== ENCOUNTER 2018-01-04 10:23 | Outpatient (RCR) | payer MEDICARE, OTHER ==
[2018-02-11] MEDS ORDERED: ONDA4TAB11 PO (03:28)
== END 2018-04-04 | disposition home or self-care (01) ==
LOC: CARD 10:23
PROVIDERS: ATTEND Internal Medicine Cardiovascular Disease
DX: I10 Essential (primary) hypertension (principal); E66.9 Obesity, unspecified; R00.2 Palpitations; R06.00 Dyspnea, unspecified; R09.81 Nasal congestion
CPT/HCPCS: 93225; 93226

== ENCOUNTER 2018-02-11 01:04 | Observation (INO) | payer MEDICARE, OTHER ==
[~2018-02-11] VITALS: Ht 165.1 cm; Wt 86.6 kg
[2018-02-11] MEDS ORDERED: NS IV 1000 ML 1,000 ML IV SCH (01:10)
--- NOTE | 2018-02-11 01:14 | ED GI ---
General Stated Complaint: STOMACH ACHE Source of Information: Patient Exam Limitations: No Limitations History of Present Illness Date Seen by Provider: Feb 11, 2018 Time Seen by Provider: 01:05 Initial Comments Patient presents to ER by private conveyance with chief complaint that late last night around 9 or 10:00 at night she began to have nausea vomiting and diarrhea with a acute pain in her epigastric region. She's had her gallbladder out before. No other abdominal surgeries. She says that she called her but he was already in the other side of the house sleep so she called ambulance. She wanted to make sure nothing was wrong. She has no history of coronary artery disease but she was having some achiness in her chest last week after she got up out of a chair and again tonight as she was vomiting her chest ached. She denies any fevers chills cough rash or recent constipation. She says her family is been down over the holidays and they all are sick with similar GI bugs. Allergies and Home Medications Allergies Coded Allergies: Sulfa (Sulfonamide Antibiotics) (Unverified Allergy, Mild, 06/14/13) Penicillins (Unverified Allergy, Unknown, NAUSEA, 05/31/13) metronidazole (Unverified Adverse Reaction, Mild, 03/06/13) states caused "growths in mouth" Home Medications Cyclobenzaprine HCl 5 Mg Tablet, 5 MG PO Q8H Prescribed by: ATIYA COFFEY on 11/08/142253 Hydrocodone/Acetaminophen 1 Each Tablet, 1-2 EACH PO Q4H PRN for PAIN Prescribed by: CHRISTY NAVARRETE on 06/26/14857 Naproxen 500 Mg Tablet, 500 MG PO BID Prescribed by: ATIYA COFFEY on 11/08/142253 Nitrofurantoin Macrocrystal 50 Mg Capsule, 100 MG PO BID Prescribed by: CHRISTY NAVARRETE on 06/26/14857 Tamsulosin HCl 0.4 Mg Cap.er.24h, 0.4 MG PO HS Prescribed by: CHRISTY NAVARRETE on 06/26/14857 Patient Home Medication List Home Medication List Reviewed: Yes Review of Systems Review of Systems Constitutional: No chills, No fever; malaise EENTM: No Blurred Vision, No Double Vision Respiratory: Denies Cough, Denies Shortness of Air Cardiovascular: See HPI, Chest Pain; Denies Edema, Denies Irregular Heart Rate , Denies Syncope Gastrointestinal: Denies Abdomen Distended; Abdominal Pain; Denies Blood Streaked Stools, Denies Constipated; Diarrhea, Nausea; Denies Poor Appetite, Denies Poor Fluid Intake; Vomiting Genitourinary: Denies Burning, Denies Discharge Musculoskeletal: No back pain, No joint pain Skin: No change in color, No pruritus, No rash Psychiatric/Neurological: Denies Headache, Denies Numbness Past Moauunk-Swlgxc-Wagzdr Hx Patient Social History Alcohol Use: Denies Use Recreational Drug Use: No Smoking Status: Never a Smoker Recent Foreign Travel: No Contact w/Someone Who Travel: No Immunizations Up To Date Tetanus Booster (TDap): Unknown Date of Pneumonia Vaccine: Jan 15, 2015 Date of Influenza Vaccine: Dec 20, 2013 Past Medical History Abdominal, Eye Surgery, Hysterectomy, Neurological, Orthopedic, Renal Traumatic Brain Injury Reproductive Disorders: No Female Reproductive Disorders: Denies [employer] History: Hysterectomy Sexually Transmitted Disease: No HIV/AIDS: No Kidney Stones Abdominal Hernia, Gastroesophageal Reflux Arthritis Cataract Loss of Vision: Denies Hearing Impairment: Denies Adverse Reaction/Blood Tranf: No Family Medical History Cancer 03 MOTHER 09 SISTER Family history: Asthma 03 MOTHER Family history: Cardiovascular disease 09 SISTER Family history: Coronary thrombosis 09 SISTER Family history: Diabetes mellitus 03 FATHER History of - respiratory disease 03 MOTHER 09 BROTHER Physical Exam Vital Signs Vital Signs - First Documented 02/11/18 01:08 Temp 99.2 Pulse 90 Resp 8 B/P (MAP) 160/84 Pulse Ox 100 O2 Delivery Room Air Capillary Refill : Height/Weight/BMI Height: 5'3.50" Weight: 185lbs. 0.0oz. 83.594375ld; 32.3 BMI Method:Estimated General Appearance: mild distress, obese HEENT: PERRL/EOMI, normal ENT inspection, pharynx normal (moderately dry oropharynx) Respiratory: chest non-tender, lungs clear, normal breath sounds, no respiratory distress, no accessory muscle use Cardiovascular: normal peripheral pulses, regular rate, rhythm, no edema Peripheral Pulses: 2+ Radial Pulses (R), 2+ Radial Pulses (L) Gastrointestinal: normal bowel sounds, non tender, soft Extremities: normal range of motion, non-tender, normal inspection, normal capillary refill Neurologic/Psychiatric: alert, normal mood/affect, oriented x 3 Skin: normal color, warm/dry Focused Exam Lactate Level 02/11/18 01:09: Lactic Acid Level 1.10 Lactic Acid Level Laboratory Tests Test 02/11/18 01:09 Lactic Acid Level 1.10 MMOL/L (0.50-2.00) Progress/Results/Core Measures Results/Orders Lab Results Laboratory Tests Test 02/11/18 01:09 02/11/18 01:39 02/11/18 02:44 Range/Units White Blood Count 8.0 4.3-11.0 10^3/uL Red Blood Count 4.86 4.35-5.85 10^6/uL Hemoglobin 14.3 11.5-16.0 G/DL Hematocrit 44 35-52 % Mean Corpuscular Volume 90 80-99 FL Mean Corpuscular Hemoglobin 29 25-34 PG Mean Corpuscular Hemoglobin Concent 33 32-36 G/DL Red Cell Distribution Width 14.7 H 10.0-14.5 % Platelet Count 162 130-400 10^3/uL Mean Platelet Volume 10.6 H 7.4-10.4 FL Neutrophils (%) (Auto) 84 H 42-75 % Lymphocytes (%) (Auto) 5 L 12-44 % Monocytes (%) (Auto) 9 0-12 % Eosinophils (%) (Auto) 2 0-10 % Basophils (%) (Auto) 0 0-10 % Neutrophils # (Auto) 6.7 1.8-7.8 X 10^3 Lymphocytes # (Auto) 0.4 L 1.0-4.0 X 10^3 Monocytes # (Auto) 0.7 0.0-1.0 X 10^3 Eosinophils # (Auto) 0.1 0.0-0.3 10^3/uL Basophils # (Auto) 0.0 0.0-0.1 10^3/uL Neutrophils % (Manual) 85 % Lymphocytes % (Manual) 4 % Monocytes % (Manual) 6 % Eosinophils % (Manual) 2 % Band Neutrophils 3 % Blood Morphology Comment NORMAL Prothrombin Time 14.0 12.2-14.7 SEC INR Comment 1.1 0.8-1.4 Activated Partial Thromboplast Time 31 24-35 SEC Sodium Level 146 H 135-145 MMOL/L Potassium Level 4.2 3.6-5.0 MMOL/L Chloride Level 106 98-107 MMOL/L Carbon Dioxide Level 25 21-32 MMOL/L Anion Gap 15 H 5-14 MMOL/L Blood Urea Nitrogen 21 H 7-18 MG/DL Creatinine 0.77 0.60-1.30 MG/DL Estimat Glomerular Filtration Rate > 60 BUN/Creatinine Ratio 27 Glucose Level 107 H 70-105 MG/DL Lactic Acid Level 1.10 0.50-2.00 MMOL/L Calcium Level 9.2 8.5-10.1 MG/DL Corrected Calcium 9.1 8.5-10.1 MG/DL Magnesium Level 2.5 H 1.8-2.4 MG/DL Total Bilirubin 0.8 0.1-1.0 MG/DL Aspartate Amino Transf (AST/SGOT) 26 5-34 U/L Alanine Aminotransferase (ALT/SGPT) 18 0-55 U/L Alkaline Phosphatase 83 40-136 U/L Troponin I < 0.30 <0.30 NG/ML Total Protein 7.4 6.4-8.2 GM/DL Albumin 4.1 3.2-4.5 GM/DL Lipase 21 8-78 U/L Glucometer 79 70-110 MG/DL Urine Color YELLOW Urine Clarity SLIGHTLY CLOUDY Urine pH 8 5-9 Urine Specific [place] 1.015 L 1.016-1.022 Urine Protein 1+ H NEGATIVE Urine Glucose (UA) NEGATIVE NEGATIVE Urine Ketones 2+ H NEGATIVE Urine Nitrite NEGATIVE NEGATIVE Urine Bilirubin NEGATIVE NEGATIVE Urine Urobilinogen 4 H NORMAL MG/DL Urine Leukocyte Esterase 1+ H NEGATIVE Urine RBC (Auto) 3+ H NEGATIVE Urine RBC 5-10 H /HPF Urine WBC 0-2 /HPF Urine Squamous Epithelial Cells 0-2 /HPF Urine Crystals NONE /LPF Urine Bacteria MODERATE H /HPF Urine Casts NONE /LPF Urine Mucus NEGATIVE /LPF Urine Culture Indicated YES My Orders Orders - SORAYA SANFORD Cbc With Automated Diff (02/11/18 01:10) Comprehensive Metabolic Panel (02/11/18 01:10) Lactic Acid Analyzer (02/11/18 01:10) Lipase (02/11/18 01:10) Magnesium (02/11/18 01:10) Protime With Inr (02/11/18 01:10) Partial Thromboplastin Time (02/11/18 01:10) Troponin I (02/11/18 01:10) Ua Culture If Indicated (02/11/18 01:10) Accucheck Stat ONCE (02/11/18 01:10) Chest 1 View, Ap/Pa Only (02/11/18 01:10) Saline Lock/Iv-Start (02/11/18 01:10) Ns Iv 1000 Ml (Sodium Chloride 0.9%) (02/11/18 01:10) Ekg Tracing (02/11/18 01:10) Continuous Ekg Monitoring (02/11/18 01:10) Ondansetron Injection (Zofran Injectio (02/11/18 01:15) Manual Differential (02/11/18 01:09) Urine Culture (02/11/18 02:44) Medications Given in ED Current Medications Medications Dose Ordered Sig/Chang Route Start Time Stop Time Status Last Admin Dose Admin Ondansetron HCl 4 mg ONCE ONCE IVP 02/11/18 01:15 02/11/18 01:16 DC 02/11/18 01:23 4 MG Vital Signs/I&O 02/11/18 02/11/18 01:08 02:13 Temp 99.2 99.2 Pulse 90 90 Resp 8 18 B/P (MAP) 160/84 160/84 (109) Pulse Ox 100 100 O2 Delivery Room Air Room Air Progress Progress Note #1: Time: 01:18 Progress Note No surgically acute abdomen. Sounds like gastroenteritis probably from a virus. Her chest pain is probably from the retching or vomiting however we'll get a chest x-ray EKG and troponin. She cannot tolerate aspirin at this time she is nauseated. We'll give her Zofran and a liter fluids to start. Lipase. Technically she'll probably need sepsis criteria. His elevated white count after vomiting in her base tachycardia of 100 so we will obtain blood cultures, PT INR, PTT and urinalysis looking for other evidence of end organ dysfunction. Lactic acid. Progress Note #2: Time: 03:24 Progress Note Patient's pain is much improved and she's not having any nausea right now. Give her the option to stick around in the hospital on observation stay versus going home and she would much prefer to go home. This does seem to be gastroenteritis given her whole family had it for about a day and she should do well with some ondansetron outpatient. Initial ECG Impression Date: Feb 11, 2018 Initial ECG Impression Time: 01:14 Initial ECG Rate: 100 Initial ECG Rhythm: Normal Sinus Initial ECG Intervals: Normal Initial ECG Impression: Normal Comment Sinus tachycardia with no clinically consistent or significant ST elevation or depression. Diagnostic Imaging Diagonstic Imaging: Xray Plain Films/CT/US/NM/MRI: chest (1v) Reviewed: Reviewed by Me Departure Impression Primary Impression: Gastroenteritis and colitis, viral Disposition: HOME, SELF-CARE Condition: Improved Departure-Patient Inst. Decision time for Depature: 03:25 Referrals: BRENDEN MCNEIL MD (PCP/Family) Primary Care Physician Patient Instructions: [id number] Add. Discharge Instructions: These viruses easily now last more than 3-5 days. Make sure you're drinking plenty of fluids. Sports drinks mixed 50 percent with water. Use the ondansetron one tablet every 6 hours as needed to control the nausea. Allow the diarrhea to happen for the first 24-48 hours. After that you can use Pepto- Bismol or Imodium. Imodium can be used 2 tablets first followed by one tablet every 4 hours that you have watery loose stools until your stools are more soft to solid. If you have severe pain, fevers or intractable nausea and vomiting then you may return to the nearest ER. Otherwise plan to follow up with primary care as needed. Scripts Ondansetron (Ondansetron Odt) 4 Mg Tab.rapdis 4 MG PO Q6H PRN for NAUSEA/VOMITING, #10 TAB 0 Refills Prov: SORAYA SANFORD 02/11/18 SORAYA SANFORD Feb 11, 2018 01:14
[2018-02-11] MEDS ORDERED: ONDANSETRON 4 MG/2 ML (SDV) Z0FRAN IVP ONE (01:15)
[2018-02-11 01:32] LABS: BASOPHILS % (AUTO) 0 % (0-10); EOSINOPHILS # (AUTO) 0.1 10^3/uL (0.0-0.3); EOSINOPHILS % (AUTO) 2 % (0-10); HEMATOCRIT 44 % (35-52); HEMOGLOBIN 14.3 G/DL (11.5-16.0); LYMPHOCYTES # (AUTO) 0.4 X 10^3 (1.0-4.0); LYMPHOCYTES % (AUTO) 5 % (12-44); MEAN CORPUSCULAR HEMOGLOBIN 29 PG (25-34); MEAN CORPUSCULAR HGB CONC 33 G/DL (32-36); MEAN CORPUSCULAR VOLUME 90 FL (80-99); MEAN PLATELET VOLUME 10.6 FL (7.4-10.4); MONOCYTES # (AUTO) 0.7 X 10^3 (0.0-1.0); MONOCYTES % (AUTO) 9 % (0-12); NEUTROPHILS # (AUTO) 6.7 X 10^3 (1.8-7.8); NEUTROPHILS % (AUTO) 84 % (42-75); PLATELET COUNT 162 10^3/uL (130-400); RED BLOOD COUNT 4.86 10^6/uL (4.35-5.85); RED CELL DISTRIBUTION WIDTH 14.7 % (10.0-14.5)
[2018-02-11 01:43] LABS: INR 1.1 (0.8-1.4)
[2018-02-11 01:54] LABS: ALANINE AMINOTRANSFERASE 18 U/L (0-55); ALBUMIN 4.1 GM/DL (3.2-4.5); ALKALINE PHOSPHATASE 83 U/L (40-136); BAND NEUTROPHILS 3 %; BILIRUBIN,TOTAL 0.8 MG/DL (0.1-1.0); BUN/CREATININE RATIO 27; CALCIUM 9.2 MG/DL (8.5-10.1); CARBON DIOXIDE 25 MMOL/L (21-32); CHLORIDE 106 MMOL/L (98-107); CREATININE SERUM 0.77 MG/DL (0.60-1.30); EOSINOPHILS % (MANUAL) 2 %; GFR ESTIMATED > 60; GLUCOSE 107 MG/DL (70-105); LIPASE 21 U/L (8-78); LYMPHOCYTES % (MANUAL) 4 %; MAGNESIUM 2.5 MG/DL (1.8-2.4); MONOCYTES % (MANUAL) 6 %; NEUTROPHILS % (MANUAL) 85 %; POTASSIUM 4.2 MMOL/L (3.6-5.0); RBC MORPH NORMAL; SODIUM 146 MMOL/L (135-145); TOTAL PROTEIN 7.4 GM/DL (6.4-8.2)
[2018-02-11 02:49] LABS: BILIRUBIN,URINE NEGATIVE (NEGATIVE); CLARITY,URINE SLIGHTLY CLOUDY; COLOR,URINE YELLOW; GLUCOSE, URINE (UA) NEGATIVE (NEGATIVE); KETONES,URINE 2+ (NEGATIVE); LEUKOCYTE ESTERASE ,URINE 1+ (NEGATIVE); NITRITE,URINE NEGATIVE (NEGATIVE); PH,URINE 8 (5-9); PROTEIN,URINE 1+ (NEGATIVE); UROBILINOGEN,URINE 4 MG/DL (NORMAL)
[2018-02-11 02:58] LABS: BACTERIA,URINE MODERATE /HPF; WBC,URINE 0-2 /HPF
[2018-02-11 02:59] LABS: SQUAMOUS EPITHELIAL CELL,UR 0-2 /HPF
[2018-02-11] MEDS ORDERED: ONDA4TAB11 PO (03:28)
--- NOTE | 2018-02-11 03:40 | NUR ---
Pt was about to be discharged and provider was notified that patient had a fever.
[2018-02-11] MEDS ORDERED: ACETAMINOPHEN 500 MG TAB (TYLENOL) PO ONE (03:45)
[2018-02-11] MEDS ORDERED: CEFEPIME INJECTION 2,000 MG in NS (IVPB) 50 ML IV ONE (04:00)
--- OUTSIDE RECORDS SUMMARY | 2018-02-11 05:03 | XMS REPORT | Continuity of Care Document ---
Author Author [facility] Organization [facility] Address Unknown Phone Unavailable Allergies Active Description Code Type Severity Reaction Onset Reported/Identified Relationship to Patient Clinical Status Yes metronidazole [id number] Drug Allergy Mild N/A 03/06/2013 Yes Penicillins [id number] Drug Allergy Unknown NAUSEA 05/31/2013 Yes Sulfa (Sulfonamide Antibiotics) [id number] Drug Allergy Mild N/A 2013 Medications There is no data. 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 02/04/2012 Ot 873.42 OPEN WOUND OF FOREHEAD 02/04/2012 Ot 959.01 HEAD INJURY , NOS 02/04/2012 Ot E000.8 OTHER EXTERNAL CAUSE STATUS 02/04/2012 Ot E849.6 ACCIDENT IN PUBLIC BLDG 02/04/2012 Ot E888.1 FALL STRIKING OBJECT NEC 02/12/2012 Ot V58.32 ENCOUNTER FOR REMOVAL OF SUTURES 04/18/2012 Ot 780.79 OTH MALAISE FATIGUE 04/18/2012 Ot V57.1 PHYSICAL THERAPY NEC 01/28/2013 MELANY OVERTON APRN Ot 847.0 SPRAIN OF NECK 01/28/2013 MELANY OVERTON APRN Ot 959.09 INJURY OF FACE AND NECK 01/28/2013 MELANY OVERTON APRN Ot E000.8 OTHER EXTERNAL CAUSE STATUS 01/28/2013 MELANY OVERTON APRN Ot E849.0 ACCIDENT IN HOME 01/28/2013 MELANY OVERTON APRN Ot E880.9 FALL ON STAIR/STEP NEC 03/08/2013 JESSY MCKENZIE, ARLIN Godinez Ot 721.1 CERV SPONDYL W MYELOPATH 03/08/2013 JESSY MCKENZIE, ARLIN Godinez Ot 733.00 OSTEOPOROSIS NOS 03/17/2013 MICHAEL MCKENZIE, GEMINI Hendrickson Ot 726.10 BURSAE TENDONS DIS SHLDER NOS 03/17/2013 MICHAEL MCKENZIE, GEMINI Hendrickson Ot V57.1 PHYSICAL THERAPY NEC 04/25/2013 RAMIRO MCKENZIE, ALEX R Ot 041.6 PROTEUS INFECTION NOS 04/25/2013 RAMIRO MCKENZIE, ALEX R Ot 276.50 VOLUME DEPLETION, UNSPECIFIED 04/25/2013 RAMIRO MCKENZIE, ALEX R Ot 518.0 PULMONARY COLLAPSE 04/25/2013 ALEX RUBIO MD R Ot 530.81 ESOPHAGEAL REFLUX 04/25/2013 ALEX RUBIO MD R Ot 536.2 PERSISTENT VOMITING 04/25/2013 RAMIRO MCKENZIE, ALEX R Ot 558.9 NONINF GASTROENTERIT NEC 04/25/2013 ALEX RUBIO MD R Ot 599.0 URIN TRACT INFECTION NOS 04/25/2013 ALEX RUBIO MD R Ot 780.79 OTH MALAISE FATIGUE 05/31/2013 NAYLA MCKENZIE, KATHARINE A Ot 530.81 ESOPHAGEAL REFLUX 05/31/2013 KATHARINE WINSLOW MD Ot 591 HYDRONEPHROSIS 05/31/2013 KATHARINE WINSLOW MD Ot 592.0 CALCULUS OF KIDNEY 05/31/2013 KATHARINE WINSLOW MD Ot 592.1 CALCULUS OF URETER 05/31/2013 KATHARINE WINSLOW MD Ot 733.00 OSTEOPOROSIS NOS 06/14/2013 KATHARINE WINSLOW MD A Ot 592.0 CALCULUS OF KIDNEY 06/27/2013 KATHARINE WINSLOW MD Ot 592.0 CALCULUS OF KIDNEY 01/10/2014 KARTHIK MOYER Ot 599.0 URIN TRACT INFECTION NOS 01/10/2014 KARTHIK MOYER Ot 788.41 URINARY FREQUENCY 01/22/2014 LEXI FUCHS DO Ot 599.0 01/24/2014 LEXI FUCHS DO Ot 599.0 01/25/2014 LEXI FUCHS DO Ot 599.0 01/26/2014 FUCHS DO, LEXI Yessenia Ot 599.0 01/27/2014 FUCHS DO, LEXI Yessenia Ot 599.0 01/28/2014 FUCHS DO, LEXI Casas Ot 599.0 01/29/2014 FUCHS DO, LEXI Casas Ot 599.0 01/30/2014 FUCHS DO, LEXI Yessenia Ot 599.0 01/30/2014 FUCHS DO, LEXI Casas Ot 599.0 01/31/2014 FUCHS DO, LEXI Yessenia Ot 599.0 02/01/2014 FUCHS DO, LEXI Yessenia Ot 599.0 03/17/2014 ERIC FRY APRN Ot V76.12 03/17/2014 JESSY MCKENZIE, ARLIN Godinez Ot 723.0 03/17/2014 JESSY MCKENZIE, ARLIN Godinez Ot 839.61 03/17/2014 JESSY MCKENZIE, ARLIN Godinez Ot E000.8 03/17/2014 JESSY MCKENZIE, ARLIN Godinez Ot E888.9 03/17/2014 JESSY MCKENZIE, ARLIN Godinez Ot 723.0 03/17/2014 JESSY MCKENZIE, ARLIN Godinez Ot V72.63 03/17/2014 JESSY MCKENZIE, ARLIN Godinez Ot V72.83 03/17/2014 JESSY MCKENZIE, ARLIN Godinez Ot V74.8 03/17/2014 NAYLA MCKENZIE, KATHARINE A Ot 592.0 03/17/2014 NAYLA MCKENZIE, KATHARINE A Ot V72.84 03/17/2014 NAYLA MCKENZIE, KATHARINE A Ot 592.0 03/17/2014 NAYLA MCKENZIE, KATHARINE A Ot V72.63 03/17/2014 NAYLA MCKENZIE, KATHARINE A Ot V72.81 03/17/2014 NAYLA MCKENZIE, KATHARINE A Ot V72.83 03/17/2014 NAYLA MCKENZIE, KATHARINE A Ot V72.84 03/17/2014 NAYLA MCKENZIE, KATHARINE A Ot 592.0 03/17/2014 NAYLA MCKENZIE, KATHARINE A Ot 592.0 03/17/2014 FUCHS DO, LEXI Casas Ot 599.0 03/17/2014 ERIC FRY CAR BRACER Ot V76.12 04/12/2014 FUCHS DO, LEXI Casas Ot 599.0 04/20/2014 FUCHS DO, LEXI J Ot 599.0 URIN TRACT INFECTION NOS 06/06/2014 JESSY MCKENZIE, ARLIN Godinez Ot 723.0 06/06/2014 JESSY MCKENZIE, ARLIN Godinez Ot 839.61 06/06/2014 JESSY MCKENZIE, ARLIN Godinez Ot E000.8 06/06/2014 JESSY MCKNEZIE, ARLIN Godinez Ot E888.9 06/06/2014 JESSY MCKENZIE, ARLIN Godinez Ot 723.0 06/06/2014 JESSY MCKENZIE, ARLIN Godinez Ot V72.63 06/06/2014 JESSY MCKENZIE, ARLIN Godinez Ot V72.83 06/06/2014 JESSY MCKENZIE, ARLIN Godinez Ot V74.8 06/06/2014 NAYLA MCKENZIE, KATHARINE A Ot 592.0 06/06/2014 NAYLA MCKENZIE, KATHARINE A Ot V72.84 06/06/2014 NAYLA MCKENZIE, KATHARINE A Ot 592.0 06/06/2014 NAYLA MCKENZIE, KATHARINE A Ot V72.63 06/06/2014 NAYLA MCKENZIE, KATHARINE A Ot V72.81 06/06/2014 NAYLA MCKENZIE, KATHARINE A Ot V72.83 06/06/2014 NAYLA MCKENZIE, KATHARINE A Ot V72.84 06/06/2014 NAYLA MCKENZIE, KATHARINE A Ot 592.0 06/06/2014 NAYLA MCKENZIE, KATHARINE A Ot 592.0 06/06/2014 ERIC FRY APRN Ot V76.12 06/06/2014 Ot 599.0 06/12/2014 NAYLA MCKENZIE, KATHARINE A Ot 592.0 06/12/2014 NAYLA MCKENZIE, KATHARINE A Ot 599.0 06/20/2014 NAYLA MCKENZIE, KATHARINE A Ot 592.0 06/20/2014 NAYLA MCKENZIE, KATHARINE A Ot V72.63 06/20/2014 NAYLA MCKENZIE, KATHARINE A Ot V74.8 06/26/2014 NAYLA MCKENZIE, KATHARINE A Ot 592.0 CALCULUS OF KIDNEY 07/15/2014 NAYLA MCKENZIE, KATHARINE A Ot 592.0 07/15/2014 NAYLA MCKENZIE, KATHARINE A Ot 599.0 07/16/2014 NAYLA MCKENZIE, KATHARINE A Ot 592.0 07/16/2014 NAYLA MCKENZIE, KATHARINE A Ot V72.63 07/16/2014 NAYLA MCKENZIE, KATHARINE Lazar Ot V74.8 08/08/2014 NAYLA MCKENZIE, KATHARINE Lazar Ot 592.0 09/07/2014 CON DUMONT DO Ot 724.2 09/07/2014 CON DUMONT DO Ot V57.1 09/28/2014 CON DUMONT DO Ot 724.2 LUMBAGO 09/28/2014 CON DUMONT DO Ot V57.1 PHYSICAL THERAPY NEC 11/08/2014 ALEXX SCHULTZ ATIYA K Ot 847.0 SPRAIN OF NECK 11/08/2014 ALEXX DO ATIYA K Ot 847.1 SPRAIN THORACIC REGION 11/08/2014 ATIYA COFFEY DO Ot 920 CONTUSION FACE/SCALP/NCK 11/08/2014 ALEXX ATIYA SCHULTZ Ot 922.1 CONTUSION OF CHEST WALL 11/08/2014 ALEXX DO ATIYA K Ot 924.10 CONTUSION OF LOWER LEG 11/08/2014 ALEXX ATIYA SCHULTZ Ot 924.11 CONTUSION OF KNEE 11/08/2014 ALEXX DO ATIYA K Ot 959.01 HEAD INJURY, NOS 11/08/2014 ALEXX DO ATIYA K Ot 959.09 INJURY OF FACE AND NECK 11/08/2014 ATIYA COFFEY DO Ot E000.8 OTHER EXTERNAL CAUSE STATUS 11/08/2014 ATIYA COFFEY DO Ot E849.[address]/HIGHWAY 11/08/2014 ALEXX ATIYA SCHULTZ Ot E885.9 FALL FROM SLIPPING, TRIPPING, OR STUMBLI 12/27/2014 ALLIE RHODES APRN Ot M22.41 CHONDROMALACIA PATELLAE, RIGHT KNEE 04/05/2015 JESSY MCKENZIE, ARLIN Godinez Ot 723.0 04/05/2015 JESSY MCKENZIE, ARLIN Godinez Ot 839.61 04/05/2015 JESSY MCKENZIE, ALRIN Godinez Ot E000.8 04/05/2015 JESSY MCKENZEI, ARLIN Godinez Ot E888.9 04/05/2015 JESSY MCKENZIE, ARLIN Godinez Ot 723.0 04/05/2015 JESSY MCKENZIE, ARLIN Godinez Ot V72.63 04/05/2015 JESSY MCKENZIE, ARLIN Godinez Ot V72.83 04/05/2015 JESSY MCKENZIE, ARLIN Godinez Ot V74.8 04/05/2015 NAYLA MCKENZIE, KATHARINE A Ot 592.0 04/05/2015 NAYLA MCKENZIE, KATHARINE A Ot V72.84 04/05/2015 NAYLA MCKENZIE, KATHARINE A Ot 592.0 04/05/2015 NAYLA MCKENZIE, KATHARINE A Ot V72.63 04/05/2015 NAYLA MCKENZIE, KATHARINE A Ot V72.81 04/05/2015 NAYLA MCKENZIE, KATHARINE A Ot V72.83 04/05/2015 NAYLA MCKENZIE, KATHARINE A Ot V72.84 04/05/2015 NAYLA MCKENZIE, KATHARINE A Ot 592.0 04/05/2015 NAYLA MCKENZIE, KATHARINE A Ot 592.0 04/05/2015 ERIC FRY APRN Ot V76.12 04/05/2015 Ot 599.0 04/05/2015 NAYLA MCKENZIE, KATHARINE A Ot 592.0 04/05/2015 NAYLA MCKENZIE, KATHARINE A Ot 599.0 04/05/2015 NAYLA MCKENZIE, KATHARINE A Ot 592.0 04/05/2015 NAYLA MCKENZIE, KATHARINE A Ot V72.63 04/05/2015 NAYLA MCKENZIE, KATHARINE A Ot V74.8 04/05/2015 NAYLA MCKENZIE, KATHARINE A Ot 592.0 04/26/2015 ERIC FRY APRN Ot Z12.31 04/17/2016 JESSY MCKENZIE, ARLIN Godinez Ot 723.0 CERVICAL SPINAL STENOSIS 04/17/2016 JESSY MCKENZIE, ARLIN Godinez Ot 839.61 DISLOCAT STERNUM-CLOSED 04/17/2016 ARLIN JIMÉNEZ MD Ot E000.8 OTHER EXTERNAL CAUSE STATUS 04/17/2016 ARLIN JIMÉNEZ MD Ot E888.9 FALL NOS 04/17/2016 ARLIN JIMÉNEZ MD Ot 723.0 CERVICAL SPINAL STENOSIS 04/17/2016 RALIN JIMÉNEZ MD Ot V72.63 PRE-PROCEDURAL LABORATORY EXAMINATION 04/17/2016 ARLIN JIMÉNEZ MD Ot V72.83 EXAM PRE-OPERATIVE NEC 04/17/2016 ARLIN JIMÉNEZ MD Ot V74.8 SCREEN-BACTERIAL DIS NEC 04/17/2016 NAYLA MCKENZIE, KATHARINE Lazar Ot 592.0 CALCULUS OF KIDNEY 04/17/2016 NAYLA KATHARINE MCKENZIE Ot V72.84 EXAM PRE-OPERATIVE NOS 04/17/2016 KATHARINE WINSLOW MD Ot 592.0 CALCULUS OF KIDNEY 04/17/2016 KATHARINE WINSLOW MD Ot V72.63 PRE-PROCEDURAL LABORATORY EXAMINATION 04/17/2016 KATHARINE WINSLOW MD, Ot V72.81 [id number] CARDIOVASCULAR 04/17/2016 KATHARINE WINSLOW MD Ot V72.83 EXAM PRE-OPERATIVE NEC 04/17/2016 KATHARINE WINSLOW MD Ot V72.84 EXAM PRE-OPERATIVE NOS 04/17/2016 KATHARINE WINSLOW MD Ot 592.0 CALCULUS OF KIDNEY 04/17/2016 KATHARINE WINSLOW MD Ot 592.0 CALCULUS OF KIDNEY 04/17/2016 ERIC FRY APRN Ot V76.12 OTH SCREEN MAMMO-MALIGN NEOPLASM OF DAI 04/17/2016 Ot 599.0 URIN TRACT INFECTION NOS 04/17/2016 KATHARINE WINSLOW MD Ot 592.0 CALCULUS OF KIDNEY 04/17/2016 KATHARINE WINSLOW MD Ot 599.0 URIN TRACT INFECTION NOS 04/17/2016 NAYLA MCKENZIE, KATHARINE Lazar Ot 592.0 CALCULUS OF KIDNEY 04/17/2016 KATHARINE WINSLOW MD Ot V72.63 PRE-PROCEDURAL LABORATORY EXAMINATION 04/17/2016 KATHARINE WINSLOW MD Ot V74.8 SCREEN-BACTERIAL DIS NEC 04/17/2016 KATHARINE WINSLOW MD Ot 592.0 CALCULUS OF KIDNEY 04/17/2016 ERIC FRY APRN Ot Z12.31 ENCNTR SCREEN MAMMOGRAM FOR MALIGNANT NE 04/19/2016 BRUNILDA PRICE MD Ot E66.9 OBESITY, UNSPECIFIED 04/19/2016 BRUNILDA PRICE MD Ot I10 ESSENTIAL (PRIMARY) HYPERTENSION 04/19/2016 BRUNILDA PRICE MD Ot R00.2 PALPITATIONS 04/19/2016 BRUNILDA PRICE MD Ot R94.31 ABNORMAL ELECTROCARDIOGRAM [ECG] [EKG] 04/20/2016 ARLIN JIMÉNEZ MD Ot 723.0 CERVICAL SPINAL STENOSIS 04/20/2016 ARLIN JIMÉNEZ MD Ot 839.61 DISLOCAT STERNUM-CLOSED 04/20/2016 JESSY MCKENZIE, ARLIN Godinez Ot E000.8 OTHER EXTERNAL CAUSE STATUS 04/20/2016 ARLIN JIMÉNEZ MD Ot E888.9 FALL NOS 04/20/2016 ARLIN JIMÉNEZ MD Ot 723.0 CERVICAL SPINAL STENOSIS 04/20/2016 ARLIN JIMÉNEZ MD Ot V72.63 PRE-PROCEDURAL LABORATORY EXAMINATION 04/20/2016 ARLIN JIMÉNEZ MD Ot V72.83 EXAM PRE-OPERATIVE NEC 04/20/2016 ARLIN JIMÉNEZ MD Ot V74.8 SCREEN-BACTERIAL DIS NEC 04/20/2016 KATHARINE WINSLOW MD Ot 592.0 CALCULUS OF KIDNEY 04/20/2016 KATHARINE WINSLOW MD Ot V72.84 EXAM PRE-OPERATIVE NOS 04/20/2016 KATHARINE WINSLOW MD Ot 592.0 CALCULUS OF KIDNEY 04/20/2016 KATHARINE WINSLOW MD Ot V72.63 PRE-PROCEDURAL LABORATORY EXAMINATION 04/20/2016 KATHARINE WINSLOW MD Ot V72.81 [id number] CARDIOVASCULAR 04/20/2016 KATHARINE WINSLOW MD Ot V72.83 EXAM PRE-OPERATIVE NEC 04/20/2016 KATHARINE WINSLOW MD Ot V72.84 EXAM PRE-OPERATIVE NOS 04/20/2016 KATHARINE WINSLOW MD Ot 592.0 CALCULUS OF KIDNEY 04/20/2016 KATHARINE WINSLOW MD Ot 592.0 CALCULUS OF KIDNEY 04/20/2016 ERIC FRY APRN Ot V76.12 OTH SCREEN MAMMO-MALIGN NEOPLASM OF DAI 04/20/2016 Ot 599.0 URIN TRACT INFECTION NOS 04/20/2016 KATHARINE WINSLOW MD Ot 592.0 CALCULUS OF KIDNEY 04/20/2016 KATHARINE WINSLOW MD Ot 599.0 URIN TRACT INFECTION NOS 04/20/2016 KATHARINE WINSLOW MD Ot 592.0 CALCULUS OF KIDNEY 04/20/2016 KATHARINE WINSLOW MD Ot V72.63 PRE-PROCEDURAL LABORATORY EXAMINATION 04/20/2016 KATHARINE WINSLOW MD Ot V74.8 SCREEN-BACTERIAL DIS NEC 04/20/2016 KATHARINE WINSLOW MD Ot 592.0 CALCULUS OF KIDNEY 04/20/2016 ERIC FRY APRN Ot Z12.31 ENCNTR SCREEN MAMMOGRAM FOR MALIGNANT NE 04/20/2016 BRUNILDA PRICE MD Ot E66.9 OBESITY, UNSPECIFIED 04/20/2016 BRUNILDA PRICE MD Ot I10 ESSENTIAL (PRIMARY) HYPERTENSION 04/20/2016 BRUNILDA PRICE MD Ot R00.2 PALPITATIONS 04/20/2016 BRUNILDA PRICE MD Ot R94.31 ABNORMAL ELECTROCARDIOGRAM [ECG] [EKG] 04/28/2016 BRUNILDA PRICE MD Ot E66.9 OBESITY, UNSPECIFIED 04/28/2016 BRUNILDA PRICE MD Ot I10 ESSENTIAL (PRIMARY) HYPERTENSION 04/28/2016 BRUNILDA PRICE MD Ot R94.31 ABNORMAL ELECTROCARDIOGRAM [ECG] [EKG] 04/29/2016 ARLIN JIMÉNEZ MD Ot 723.0 CERVICAL SPINAL STENOSIS 04/29/2016 ARLIN JIMÉNEZ MD Ot 839.61 DISLOCAT STERNUM-CLOSED 04/29/2016 ARLIN JIMÉNEZ MD Ot E000.8 OTHER EXTERNAL CAUSE STATUS 04/29/2016 ARLIN JIMÉNEZ MD Ot E888.9 FALL NOS 04/29/2016 ARLIN JIMÉNEZ MD Ot 723.0 CERVICAL SPINAL STENOSIS 04/29/2016 ARLIN JIMÉNEZ MD Ot V72.63 PRE-PROCEDURAL LABORATORY EXAMINATION 04/29/2016 ARLIN JIMÉNEZ MD Ot V72.83 EXAM PRE-OPERATIVE NEC 04/29/2016 ARLIN JIMÉNEZ MD Ot V74.8 SCREEN-BACTERIAL DIS NEC 04/29/2016 KATHARINE WINSLOW MD Ot 592.0 CALCULUS OF KIDNEY 04/29/2016 KATHARIEN WINSLOW MD Ot V72.84 EXAM PRE-OPERATIVE NOS 04/29/2016 KATHARINE WINSLOW MD Ot 592.0 CALCULUS OF KIDNEY 04/29/2016 KATHARINE WINSLOW MD Ot V72.63 PRE-PROCEDURAL LABORATORY EXAMINATION 04/29/2016 KATHARINE WINSLOW MD Ot V72.81 [id number] CARDIOVASCULAR 04/29/2016 KATHARINE WINSLOW MD Ot V72.83 EXAM PRE-OPERATIVE NEC 04/29/2016 KATHARINE WINSLOW MD Ot V72.84 EXAM PRE-OPERATIVE NOS 04/29/2016 KATHARINE WINSLOW MD Ot 592.0 CALCULUS OF KIDNEY 04/29/2016 NAYLA MCKENZIE, KATHARINE Lazar Ot 592.0 CALCULUS OF KIDNEY 04/29/2016 ERIC FRY APRN Ot V76.12 OTH SCREEN MAMMO-MALIGN NEOPLASM OF DAI 04/29/2016 Ot 599.0 URIN TRACT INFECTION NOS 04/29/2016 NAYLA MCKENZIE, KATHARINE Lazar Ot 592.0 CALCULUS OF KIDNEY 04/29/2016 NAYLA MCKENZIE, KATHARINE Lazar Ot 599.0 URIN TRACT INFECTION NOS 04/29/2016 NAYLA MCKENZIE, KATHARINE Lazar Ot 592.0 CALCULUS OF KIDNEY 04/29/2016 NAYLA MCKENZIE, KATHARINE Lazar Ot V72.63 PRE-PROCEDURAL LABORATORY EXAMINATION 04/29/2016 KATHARINE WINSLOW MD Ot V74.8 SCREEN-BACTERIAL DIS NEC 04/29/2016 KATHARINE WINSLOW MD Ot 592.0 CALCULUS OF KIDNEY 04/29/2016 ERIC FRY APRN Ot Z12.31 ENCNTR SCREEN MAMMOGRAM FOR MALIGNANT NE 04/29/2016 BRUNILDA PRICE MD Ot E66.9 OBESITY, UNSPECIFIED 04/29/2016 BRUNILDA PRICE MD Ot I10 ESSENTIAL (PRIMARY) HYPERTENSION 04/29/2016 BRUNILDA PRICE MD Ot R94.31 ABNORMAL ELECTROCARDIOGRAM [ECG] [EKG] 04/30/2016 BRUNILDA PRICE MD Ot E66.9 OBESITY, UNSPECIFIED 04/30/2016 BRUNILDA PRICE MD Ot I10 ESSENTIAL (PRIMARY) HYPERTENSION 04/30/2016 BRUNILDA PRICE MD Ot R00.2 PALPITATIONS 04/30/2016 BRUNILDA PRICE MD Ot R94.31 ABNORMAL ELECTROCARDIOGRAM [ECG] [EKG] 04/30/2016 BRUNILDA PRICE MD Ot E66.9 OBESITY, UNSPECIFIED 04/30/2016 BRUNILDA PRICE MD Ot I10 ESSENTIAL (PRIMARY) HYPERTENSION 04/30/2016 BRUNILDA PRICE MD Ot R00.2 PALPITATIONS 04/30/2016 BRUNILDA PRICE MD Ot R94.31 ABNORMAL ELECTROCARDIOGRAM [ECG] [EKG] 05/04/2016 BRUNILDA PRICE MD Ot E66.9 OBESITY, UNSPECIFIED 05/04/2016 BRUNILDA PRICE MD Ot E78.5 HYPERLIPIDEMIA, UNSPECIFIED 05/04/2016 BRUNILDA PRICE MD Ot I10 ESSENTIAL (PRIMARY) HYPERTENSION 05/04/2016 BRUNILDA PRICE MD Ot I25.10 ATHSCL HEART DISEASE OF [place] CORONARY 05/04/2016 BRUNILDA PRICE MD Ot I70.0 ATHEROSCLEROSIS OF [place] 05/04/2016 BRUNILDA PRICE MD Ot R07.89 OTHER CHEST PAIN 05/04/2016 BRUNILDA PRICE MD Ot R94.39 ABNORMAL RESULT OF OTHER CARDIOVASCULAR 05/04/2016 BRUNILDA PRICE MD Ot Z68.32 BODY MASS INDEX (BMI) 32.0-32.9, ADULT 05/11/2016 BRUNILDA PRICE MD Ot E66.9 OBESITY, UNSPECIFIED 05/11/2016 BRUNILDA PRICE MD Ot E78.5 HYPERLIPIDEMIA, UNSPECIFIED 05/11/2016 BRUNILDA PRICE MD Ot I10 ESSENTIAL (PRIMARY) HYPERTENSION 05/11/2016 BRUNILDA PRICE MD Ot I25.10 ATHSCL HEART DISEASE OF [place] CORONARY 05/11/2016 BRUNILDA PRICE MD Ot I70.0 ATHEROSCLEROSIS OF [place] 05/11/2016 BRUNILDA PRICE MD Ot R07.89 OTHER CHEST PAIN 05/11/2016 BRUNILDA PRICE MD Ot R94.39 ABNORMAL RESULT OF OTHER CARDIOVASCULAR 05/11/2016 BRUNILDA PRICE MD Ot Z68.32 BODY MASS INDEX (BMI) 32.0-32.9, ADULT 05/11/2016 BRUNILDA PRICE MD Ot E66.9 OBESITY, UNSPECIFIED 05/11/2016 BRUNILDA PRICE MD Ot I10 ESSENTIAL (PRIMARY) HYPERTENSION 05/11/2016 BRUNILDA PRICE MD Ot R94.31 ABNORMAL ELECTROCARDIOGRAM [ECG] [EKG] 05/20/2016 BRUNILDA PRICE MD Ot E66.9 OBESITY, UNSPECIFIED 05/20/2016 BRUNILDA PRICE MD Ot I10 ESSENTIAL (PRIMARY) HYPERTENSION 05/20/2016 BRUNILDA PRICE MD Ot R00.2 PALPITATIONS 05/20/2016 BRUNILDA PRICE MD Ot R94.31 ABNORMAL ELECTROCARDIOGRAM [ECG] [EKG] 07/08/2016 ARLIN JIMÉNEZ MD Ot 723.0 CERVICAL SPINAL STENOSIS 07/08/2016 JESSY MCKENZIE, ARLIN Godinez Ot 839.61 DISLOCAT STERNUM-CLOSED 07/08/2016 JESSY MCKENZIE, ARLIN Godinez Ot E000.8 OTHER EXTERNAL CAUSE STATUS 07/08/2016 ARLIN JIMÉNEZ MD Ot E888.9 FALL NOS 07/08/2016 ARLIN JIMÉNEZ MD Ot 723.0 CERVICAL SPINAL STENOSIS 07/08/2016 ARLIN JIMÉNEZ MD Ot V72.63 PRE-PROCEDURAL LABORATORY EXAMINATION 07/08/2016 ARLIN JIMÉNEZ MD Ot V72.83 EXAM PRE-OPERATIVE NEC 07/08/2016 ARLIN JIMÉNEZ MD Ot V74.8 SCREEN-BACTERIAL DIS NEC 07/08/2016 KATHARINE WINSLOW MD Ot 592.0 CALCULUS OF KIDNEY 07/08/2016 KATHARINE WINSLOW MD Ot V72.84 EXAM PRE-OPERATIVE NOS 07/08/2016 KATHARINE WINSLOW MD Ot 592.0 CALCULUS OF KIDNEY 07/08/2016 KATHARINE WINSLOW MD Ot V72.63 PRE-PROCEDURAL LABORATORY EXAMINATION 07/08/2016 KATHARINE WINSLOW MD Ot V72.81 [id number] CARDIOVASCULAR 07/08/2016 KATHARINE WINSLOW MD Ot V72.83 EXAM PRE-OPERATIVE NEC 07/08/2016 KATHARINE WINSLOW MD Ot V72.84 EXAM PRE-OPERATIVE NOS 07/08/2016 KATHARINE WINSLOW MD Ot 592.0 CALCULUS OF KIDNEY 07/08/2016 KATHARINE WINSLOW MD Ot 592.0 CALCULUS OF KIDNEY 07/08/2016 ERIC FRY APRN Ot V76.12 OTH SCREEN MAMMO-MALIGN NEOPLASM OF DAI 07/08/2016 Ot 599.0 URIN TRACT INFECTION NOS 07/08/2016 KATHARINE WINSLOW MD Ot 592.0 CALCULUS OF KIDNEY 07/08/2016 KATHARINE WINSLOW MD Ot 599.0 URIN TRACT INFECTION NOS 07/08/2016 KATHARINE WINSLOW MD Ot 592.0 CALCULUS OF KIDNEY 07/08/2016 KATHARINE WINSLOW MD Ot V72.63 PRE-PROCEDURAL LABORATORY EXAMINATION 07/08/2016 KATHARINE WINSLOW MD Ot V74.8 SCREEN-BACTERIAL DIS NEC 07/08/2016 KATHARINE WINSLOW MD Ot 592.0 CALCULUS OF KIDNEY 07/08/2016 ERIC FRY APRN Ot Z12.31 ENCNTR SCREEN MAMMOGRAM FOR MALIGNANT NE 07/08/2016 BRUNILDA PRICE MD Ot E66.9 OBESITY, UNSPECIFIED 07/08/2016 BRUNILDA PRICE MD Ot I10 ESSENTIAL (PRIMARY) HYPERTENSION 07/08/2016 BRUNILDA PRICE MD Ot R94.31 ABNORMAL ELECTROCARDIOGRAM [ECG] [EKG] 07/08/2016 BRUNILDA PRICE MD Ot E66.9 OBESITY, UNSPECIFIED 07/08/2016 BRUNILDA PRICE MD Ot I10 ESSENTIAL (PRIMARY) HYPERTENSION 07/08/2016 BRUNILDA PRICE MD Ot R00.2 PALPITATIONS 07/08/2016 BRUNILDA PRICE MD Ot R94.31 ABNORMAL ELECTROCARDIOGRAM [ECG] [EKG] 07/08/2016 ARLIN JIMÉNEZ MD Ot 723.0 CERVICAL SPINAL STENOSIS 07/08/2016 ARLIN JIMÉNEZ MD Ot 839.61 DISLOCAT STERNUM-CLOSED 07/08/2016 ARLIN JIMÉNEZ MD Ot E000.8 OTHER EXTERNAL CAUSE STATUS 07/08/2016 ARLIN JIMÉNEZ MD Ot E888.9 FALL NOS 07/08/2016 ARLIN JIMÉNEZ MD Ot 723.0 CERVICAL SPINAL STENOSIS 07/08/2016 ARLIN JIMÉNEZ MD Ot V72.63 PRE-PROCEDURAL LABORATORY EXAMINATION 07/08/2016 ARLIN JIMÉNEZ MD Ot V72.83 EXAM PRE-OPERATIVE NEC 07/08/2016 ARLIN JIMÉNEZ MD Ot V74.8 SCREEN-BACTERIAL DIS NEC 07/08/2016 KATHARINE WINSLOW MD Ot 592.0 CALCULUS OF KIDNEY 07/08/2016 KATHARINE WINSLOW MD Ot V72.84 EXAM PRE-OPERATIVE NOS 07/08/2016 KATHARINE WINSLOW MD Ot 592.0 CALCULUS OF KIDNEY 07/08/2016 KATHARINE WINSLOW MD Ot V72.63 PRE-PROCEDURAL LABORATORY EXAMINATION 07/08/2016 KATHARINE WINSLOW MD Ot V72.81 [id number] CARDIOVASCULAR 07/08/2016 KATHARINE WINSLOW MD Ot V72.83 EXAM PRE-OPERATIVE NEC 07/08/2016 KATHARINE WINSLOW MD Ot V72.84 EXAM PRE-OPERATIVE NOS 07/08/2016 NAYLA MCKENZIE, KATHARINE Lazar Ot 592.0 CALCULUS OF KIDNEY 07/08/2016 KATHARINE WINSLOW MD Ot 592.0 CALCULUS OF KIDNEY 07/08/2016 ERIC FRY APRN Ot V76.12 OTH SCREEN MAMMO-MALIGN NEOPLASM OF DAI 07/08/2016 Ot 599.0 URIN TRACT INFECTION NOS 07/08/2016 NAYLA MCKENZIE, KATHARINE Lazar Ot 592.0 CALCULUS OF KIDNEY 07/08/2016 NAYLA MCKENZIE, KATHARINE Lazar Ot 599.0 URIN TRACT INFECTION NOS 07/08/2016 NAYLA MCKENZIE, KATHARINE Lazar Ot 592.0 CALCULUS OF KIDNEY 07/08/2016 KATHARINE WINSLOW MD Ot V72.63 PRE-PROCEDURAL LABORATORY EXAMINATION 07/08/2016 KATHARINE WINSLOW MD Ot V74.8 SCREEN-BACTERIAL DIS NEC 07/08/2016 KATHARINE WINSLOW MD Ot 592.0 CALCULUS OF KIDNEY 07/08/2016 ERIC FRY CAR BRACER Ot Z12.31 ENCNTR SCREEN MAMMOGRAM FOR MALIGNANT NE 07/08/2016 BRUNILDA PRICE MD Ot E66.9 OBESITY, UNSPECIFIED 07/08/2016 BRUNILDA PRICE MD Ot I10 ESSENTIAL (PRIMARY) HYPERTENSION 07/08/2016 BRUNILDA PRICE MD Ot R94.31 ABNORMAL ELECTROCARDIOGRAM [ECG] [EKG] 07/08/2016 BRUNILDA PRICE MD Ot E66.9 OBESITY, UNSPECIFIED 07/08/2016 BRUNILDA PRICE MD Ot I10 ESSENTIAL (PRIMARY) HYPERTENSION 07/08/2016 BRUNILDA PRICE MD Ot R00.2 PALPITATIONS 07/08/2016 BRUNILDA PRICE MD Ot R94.31 ABNORMAL ELECTROCARDIOGRAM [ECG] [EKG] 07/31/2016 JUAN JOSE HEDRICK Ot I10 ESSENTIAL (PRIMARY) HYPERTENSION 07/31/2016 JUAN JOSE HEDRICK Ot 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, 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 07/31/2016 JUAN JOSE HEDRICK Ot K57.30 DVRTCLOS OF LG INT W/O PERFORATION OR AB 07/31/2016 JUAN JOSE HEDRICK Ot N20.0 CALCULUS OF KIDNEY 07/31/2016 JUAN JOSE HEDRICK Ot R00.2 PALPITATIONS 07/31/2016 JUAN JOSE HEDRICK Ot R10.9 UNSPECIFIED ABDOMINAL PAIN 07/31/2016 JUAN JOSE HEDRICK Ot R60.0 LOCALIZED EDEMA 07/31/2016 JUAN JOSE HEDRICK Ot R94.31 ABNORMAL ELECTROCARDIOGRAM [ECG] [EKG] 10/02/2016 BRENDEN MCNEIL MD, Ot Z12.31 ENCNTR SCREEN MAMMOGRAM FOR MALIGNANT NE 10/03/2016 BRENDEN MCNEIL MD, Ot Z12.31 ENCNTR SCREEN MAMMOGRAM FOR MALIGNANT NE 10/07/2016 BRENDEN MCNEIL MD, Ot N64.4 MASTODYNIA 10/07/2016 BRENDEN MCNEIL MD, Ot R92.0 MAMMOGRAPHIC MICROCALCIFICATION FOUND ON 10/07/2016 BRENDEN MCNEIL MD, Ot Z12.31 ENCNTR SCREEN MAMMOGRAM FOR MALIGNANT NE 10/10/2016 ERIC FRY CAR BRACER Ot R92.0 MAMMOGRAPHIC MICROCALCIFICATION FOUND ON 10/14/2016 ERIC FRY CAR BRACER Ot R92.0 MAMMOGRAPHIC MICROCALCIFICATION FOUND ON 10/14/2016 ERIC FRY CAR BRACER Ot R92.0 MAMMOGRAPHIC MICROCALCIFICATION FOUND ON 10/27/2016 BRENDEN MCNEIL MD, Ot N64.4 MASTODYNIA 10/27/2016 BRENDEN MCNEIL MD Ot R92.0 MAMMOGRAPHIC MICROCALCIFICATION FOUND ON 10/27/2016 BRENDEN MCNEIL MD, Ot Z12.31 ENCNTR SCREEN MAMMOGRAM FOR MALIGNANT NE 11/06/2016 ERIC FRY CAR BRACER Ot R92.0 MAMMOGRAPHIC MICROCALCIFICATION FOUND ON 11/13/2016 BRENDEN MCNEIL MD, Ot N64.4 MASTODYNIA 11/13/2016 BRENDEN MCNEIL MD, Ot R92.0 MAMMOGRAPHIC MICROCALCIFICATION FOUND ON 11/13/2016 BRENDEN MCNEIL MD, Ot Z12.31 ENCNTR SCREEN MAMMOGRAM FOR MALIGNANT NE 11/27/2016 ERIC FRY CAR BRACER Ot R92.0 MAMMOGRAPHIC MICROCALCIFICATION FOUND ON 01/11/2017 BRENDEN MCNEIL MD, Ot I51.7 CARDIOMEGALY 01/11/2017 BRENDEN MCNEIL MD Ot J44.9 CHRONIC OBSTRUCTIVE PULMONARY DISEASE, U 02/09/2017 BRENDEN MCNEIL MD Ot I51.7 CARDIOMEGALY 02/09/2017 BRENDEN MCNEIL MD Ot J44.9 CHRONIC OBSTRUCTIVE PULMONARY DISEASE, U 04/14/2017 ERIC FRY APRN Ot R92.8 OTH ABN AND INCONCLUSIVE FINDINGS ON DX 04/20/2017 ERIC FRY APRN Ot R92.1 MAMMOGRAPHIC CALCIFCN FOUND ON DIAGNOSTI 04/29/2017 BRUNILDA PRICE MD Ot G47.33 OBSTRUCTIVE SLEEP APNEA (ADULT) (PEDIATR 05/07/2017 ERIC FRY APRN Ot R92.1 MAMMOGRAPHIC CALCIFCN FOUND ON DIAGNOSTI 05/10/2017 BRUNILDA PRICE MD Ot G47.33 OBSTRUCTIVE SLEEP APNEA (ADULT) (PEDIATR 05/20/2017 BRUNILDA PRICE MD Ot G47.33 OBSTRUCTIVE SLEEP APNEA (ADULT) (PEDIATR 05/24/2017 BRUNILDA PRICE MD Ot E66.9 OBESITY, UNSPECIFIED 05/24/2017 BRUNILDA PRICE MD Ot I08.3 COMB RHEUMATIC DISORD OF MITRAL, AORTIC 05/24/2017 BRUNILDA PRICE MD Ot I10 ESSENTIAL (PRIMARY) HYPERTENSION 05/24/2017 BRUNILDA PRICE MD Ot R00.2 PALPITATIONS 05/24/2017 BRUNILDA PRICE MD Ot R06.00 DYSPNEA, UNSPECIFIED 05/24/2017 BRUNILDA PRICE MD Ot R09.81 NASAL CONGESTION 05/24/2017 BRUNILDA PRICE MD Ot R60.0 LOCALIZED EDEMA 05/25/2017 BRUNILDA PRICE MD Ot G47.33 OBSTRUCTIVE SLEEP APNEA (ADULT) (PEDIATR 05/27/2017 BRUNILDA PRICE MD Ot E66.9 OBESITY, UNSPECIFIED 05/27/2017 BRUNILDA PRICE MD Ot I08.3 COMB RHEUMATIC DISORD OF MITRAL, AORTIC 05/27/2017 BRUNILDA PRICE MD Ot I10 ESSENTIAL (PRIMARY) HYPERTENSION 05/27/2017 BRUNILDA PRICE MD Ot R00.2 PALPITATIONS 05/27/2017 BRUNILDA PRICE MD Ot R06.00 DYSPNEA, UNSPECIFIED 05/27/2017 BRUNILDA PRICE MD Ot R09.81 NASAL CONGESTION 05/27/2017 BRUNILDA PRICE MD Ot R60.0 LOCALIZED EDEMA 06/11/2017 BRUNILDA PRICE MD Ot E66.9 OBESITY, UNSPECIFIED 06/11/2017 BRUNILDA PRICE MD Ot I08.3 COMB RHEUMATIC DISORD OF MITRAL, AORTIC 06/11/2017 BRUNILDA PRICE MD Ot I10 ESSENTIAL (PRIMARY) HYPERTENSION 06/11/2017 BRUNILDA PRICE MD Ot R00.2 PALPITATIONS 06/11/2017 BRUNILDA PRICE MD Ot R06.00 DYSPNEA, UNSPECIFIED 06/11/2017 BRUNILDA PRICE MD Ot R09.81 NASAL CONGESTION 06/11/2017 BRUNILDA PRICE MD Ot R60.0 LOCALIZED EDEMA 06/17/2017 BRUNILDA PRICE MD Ot G47.33 OBSTRUCTIVE SLEEP APNEA (ADULT) (PEDIATR 07/06/2017 BRUNILDA PRICE MD Ot G47.33 OBSTRUCTIVE SLEEP APNEA (ADULT) (PEDIATR 07/06/2017 BRUNILDA PRICE MD Ot G47.33 OBSTRUCTIVE SLEEP APNEA (ADULT) (PEDIATR 07/15/2017 ERIC FRY CAR BRACER Ot J44.9 CHRONIC OBSTRUCTIVE PULMONARY DISEASE, U 08/09/2017 ERIC FRY APRN Ot J44.9 CHRONIC OBSTRUCTIVE PULMONARY DISEASE, U 08/10/2017 CHRISTOPHER BOLAND CAR BRACER Ot G47.33 OBSTRUCTIVE SLEEP APNEA (ADULT) (PEDIATR 09/02/2017 CHRISTOPHER BOLAND CAR BRACER Ot G47.33 OBSTRUCTIVE SLEEP APNEA (ADULT) (PEDIATR 09/02/2017 CHRISTOPHER BOLAND CAR BRACER Ot G47.33 OBSTRUCTIVE SLEEP APNEA (ADULT) (PEDIATR 09/09/2017 BRUNILDA PRICE MD Ot E66.9 OBESITY, UNSPECIFIED 09/09/2017 BRUNILDA PRICE MD Ot I08.3 COMB RHEUMATIC DISORD OF MITRAL, AORTIC 09/09/2017 BRUNILDA PRICE MD Ot I10 ESSENTIAL (PRIMARY) HYPERTENSION 09/09/2017 BRUNILDA PRICE MD Ot R00.2 PALPITATIONS 09/09/2017 BRUNILDA PRICE MD Ot R06.00 DYSPNEA, UNSPECIFIED 09/09/2017 BRUNILDA PRICE MD Ot R09.81 NASAL CONGESTION 09/09/2017 BRUNILDA PRICE MD Ot R60.0 LOCALIZED EDEMA 12/02/2017 ERIC FRY CAR BRACER Ot Z12.31 ENCNTR SCREEN MAMMOGRAM FOR MALIGNANT NE 12/24/2017 ERIC FRY CAR BRACER Ot Z12.31 ENCNTR SCREEN MAMMOGRAM FOR MALIGNANT NE 01/04/2018 ARLIN JIMÉNEZ MD Ot 723.0 CERVICAL SPINAL STENOSIS 01/04/2018 ARLIN JIMÉNEZ MD Ot 839.61 DISLOCAT STERNUM-CLOSED 01/04/2018 ARLIN JIMÉNEZ MD Ot E000.8 OTHER EXTERNAL CAUSE STATUS 01/04/2018 ARLIN JIMÉNEZ MD Ot E888.9 FALL NOS 01/04/2018 ARLIN JIMÉNEZ MD Ot 723.0 CERVICAL SPINAL STENOSIS 01/04/2018 ARLIN JIMÉNEZ MD Ot V72.63 PRE-PROCEDURAL LABORATORY EXAMINATION 01/04/2018 ARLIN JIMÉNEZ MD Ot V72.83 EXAM PRE-OPERATIVE NEC 01/04/2018 ARLIN JIMÉNEZ MD Ot V74.8 SCREEN-BACTERIAL DIS NEC 01/04/2018 KATHARINE WINSLOW MD Ot 592.0 CALCULUS OF KIDNEY 01/04/2018 KATHARINE WINSLOW MD Ot V72.84 EXAM PRE-OPERATIVE NOS 01/04/2018 KATHARINE WINSLOW MD Ot 592.0 CALCULUS OF KIDNEY 01/04/2018 KATHARINE WINSLOW MD Ot V72.63 PRE-PROCEDURAL LABORATORY EXAMINATION 01/04/2018 KATHARINE WINSLOW MD Ot V72.81 [id number] CARDIOVASCULAR 01/04/2018 KATHARINE WINSLOW MD Ot V72.83 EXAM PRE-OPERATIVE NEC 01/04/2018 KATHARINE WINSLOW MD Ot V72.84 EXAM PRE-OPERATIVE NOS 01/04/2018 KATHARINE WINSLOW MD Ot 592.0 CALCULUS OF KIDNEY 01/04/2018 KATHARINE WINSLOW MD Ot 592.0 CALCULUS OF KIDNEY 01/04/2018 ERIC FRY CAR BRACER Ot V76.12 OTH SCREEN MAMMO-MALIGN NEOPLASM OF DAI 01/04/2018 Ot 599.0 URIN TRACT INFECTION NOS 01/04/2018 KATHARINE WINSLOW MD Ot 592.0 CALCULUS OF KIDNEY 01/04/2018 KATHARINE WINSLOW MD Ot 599.0 URIN TRACT INFECTION NOS 01/04/2018 NAYLA MCKENZIE, KATHARINE Lazar Ot 592.0 CALCULUS OF KIDNEY 01/04/2018 NAYLA MCKENZIE, KATHARINE Lazar Ot V72.63 PRE-PROCEDURAL LABORATORY EXAMINATION 01/04/2018 NAYLA MCKENZIE, KATHARINE Lazar Ot V74.8 SCREEN-BACTERIAL DIS NEC 01/04/2018 KATHARINE WINSLOW MD Ot 592.0 CALCULUS OF KIDNEY 01/04/2018 ERIC FRY APRN Ot Z12.31 ENCNTR SCREEN MAMMOGRAM FOR MALIGNANT NE 01/04/2018 BRUNILDA PRICE MD Ot E66.9 OBESITY, UNSPECIFIED 01/04/2018 BRUNILDA PRICE MD Ot I10 ESSENTIAL (PRIMARY) HYPERTENSION 01/04/2018 BRUNILDA PRICE MD Ot R94.31 ABNORMAL ELECTROCARDIOGRAM [ECG] [EKG] 01/04/2018 BRUNILDA PRICE MD Ot E66.9 OBESITY, UNSPECIFIED 01/04/2018 BRUNILDA PRICE MD Ot I10 ESSENTIAL (PRIMARY) HYPERTENSION 01/04/2018 BRUNILDA PRICE MD Ot R00.2 PALPITATIONS 01/04/2018 BRUNILDA PRICE MD Ot R94.31 ABNORMAL ELECTROCARDIOGRAM [ECG] [EKG] 01/04/2018 JUAN JOSE HEDRICK Ot I10 ESSENTIAL (PRIMARY) HYPERTENSION 01/04/2018 JUAN JOSE HEDRICK Ot 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, 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 01/04/2018 JUAN JOSE HEDRICK Ot K57.30 DVRTCLOS OF LG INT W/O PERFORATION OR AB 01/04/2018 JUAN JOSE HEDRICK Ot N20.0 CALCULUS OF KIDNEY 01/04/2018 JUAN JOSE HEDRICK Ot R00.2 PALPITATIONS 01/04/2018 JUAN JOSE HEDRICK Ot R10.9 UNSPECIFIED ABDOMINAL PAIN 01/04/2018 JUAN JOSE HEDRICK Ot R60.0 LOCALIZED EDEMA 01/04/2018 JUAN JOSE HEDRICK Ot R94.31 ABNORMAL ELECTROCARDIOGRAM [ECG] [EKG] 01/04/2018 TARUN MCKENZIE, BRENDEN Godinez Ot N64.4 MASTODYNIA 01/04/2018 BRENDEN MCNEIL MD Ot R92.0 MAMMOGRAPHIC MICROCALCIFICATION FOUND ON 01/04/2018 BRENDEN MCNEIL MD Ot Z12.31 ENCNTR SCREEN MAMMOGRAM FOR MALIGNANT NE 01/04/2018 ERIC FRY APRN Ot R92.0 MAMMOGRAPHIC MICROCALCIFICATION FOUND ON 01/04/2018 BRENDEN MCNEIL MD Ot I51.7 CARDIOMEGALY 01/04/2018 BRENDEN MCNEIL MD Ot J44.9 CHRONIC OBSTRUCTIVE PULMONARY DISEASE, U 01/04/2018 ERIC FRY APRN Ot R92.1 MAMMOGRAPHIC CALCIFCN FOUND ON DIAGNOSTI 01/04/2018 BRUNILDA PRICE MD Ot E66.9 OBESITY, UNSPECIFIED 01/04/2018 BRUNILDA PRICE MD Ot I08.3 COMB RHEUMATIC DISORD OF MITRAL, AORTIC 01/04/2018 BRUNILDA PRICE MD Ot I10 ESSENTIAL (PRIMARY) HYPERTENSION 01/04/2018 BRUNILDA PRICE MD Ot R00.2 PALPITATIONS 01/04/2018 BRUNILDA PRICE MD Ot R06.00 DYSPNEA, UNSPECIFIED 01/04/2018 BRUNILDA PRICE MD Ot R09.81 NASAL CONGESTION 01/04/2018 BRUNILDA PRICE MD Ot R60.0 LOCALIZED EDEMA 01/04/2018 ERIC FRY APRN Ot J44.9 CHRONIC OBSTRUCTIVE PULMONARY DISEASE, U 01/04/2018 ERIC FRY APRN Ot Z12.31 ENCNTR SCREEN MAMMOGRAM FOR MALIGNANT NE Procedures Code Description Performed By Performed On 80.51 EXCISION INTERVERT DISC 03/06/2013 81.02 OTH CERVICAL FUSION OF ANTERIOR COLUMN, 03/06/2013 81.62 FUSION/REFUS OF 2-3 VERTEBRAE 03/06/2013 84.51 INSERTION OF INTERBODY SPINAL FUSION DEV 03/06/2013 56.31 URETEROSCOPY 05/31/2013 57.32 CYSTOSCOPY NEC 05/31/2013 59.8 URETERAL CATHETERIZATION 05/31/2013 Results Test Result Range Automated blood complete blood count (hemogram) panel - 05/04/16 08:16 Blood leukocytes automated count (number/volume) 4.1 10*3/uL 4.3-11.0 Blood erythrocytes automated count (number/volume) 4.71 10*6/uL 4.35-5.85 Venous blood hemoglobin measurement (mass/volume) 13.9 g/dL 11.5-16.0 Blood hematocrit (volume fraction) 42 % 35-52 Automated erythrocyte mean corpuscular volume 89 [foz_us] 80-99 Automated erythrocyte mean corpuscular hemoglobin (mass per erythrocyte) 30 pg 25-34 Automated erythrocyte mean corpuscular hemoglobin concentration measurement ( mass/volume) 33 g/dL 32-36 Automated erythrocyte distribution width ratio 15.0 % 10.0-14.5 Automated blood platelet count (count/volume) 151 10*3/uL 130-400 Automated blood platelet mean volume measurement 11.1 [foz_us] 7.4-10.4 Complete urinalysis with reflex to culture - 05/04/16 08:16 Urine color determination YELLOW NRG Urine clarity determination CLEAR NRG Urine pH measurement by test strip 5 5-9 Specific gravity of urine by test strip 1.020 1.016- 1.022 Urine protein assay by test strip, semi-quantitative NEGATIVE NEGATIVE Urine glucose detection by automated test strip NEGATIVE NEGATIVE Erythrocytes detection in urine sediment by light microscopy 3+ NEGATIVE Urine ketones detection by automated test strip NEGATIVE NEGATIVE Urine nitrite detection by test strip NEGATIVE NEGATIVE Urine total bilirubin detection by test strip NEGATIVE NEGATIVE Urine urobilinogen measurement by automated test strip (mass/volume) NORMAL NORMAL Urine leukocyte esterase detection by dipstick 1+ NEGATIVE Automated urine sediment erythrocyte count by microscopy (number/high power field) [HPF] NRG Automated urine sediment leukocyte count by microscopy (number/high power field ) NONE NRG Bacteria detection in urine sediment by light microscopy NEGATIVE NRG Squamous epithelial cells detection in urine sediment by light microscopy 5-10 NRG Crystals detection in urine sediment by light microscopy NONE NRG Casts detection in urine sediment by light microscopy NONE NRG Mucus detection in urine sediment by light microscopy NEGATIVE NRG Complete urinalysis with reflex to culture NO NRG PT panel in platelet poor plasma by coagulation assay - 05/04/16 08:16 Prothrombin time (PT) in platelet poor plasma by coagulation assay 14.1 s 12.2-14.7 INR in platelet poor plasma or blood by coagulation assay 1.1 0.8-1.4 Activated partial thromboplastin time (aPTT) in platelet poor plasma bycoagulation assay - 05/04/16 08:16 Activated partial thromboplastin time (aPTT) in platelet poor plasma bycoagulation assay 30 s 24-35 Comprehensive metabolic panel - 05/04/16 08:16 Serum or plasma sodium measurement (moles/volume) 144 mmol/L 135-145 Serum or plasma potassium measurement (moles/volume) 3.9 mmol/L 3.6-5.0 Serum or plasma chloride measurement (moles/volume) 107 mmol/L 98-107 Carbon dioxide 27 mmol/L 21-32 Serum or plasma anion gap determination (moles/volume) 10 mmol/L 5-14 Serum or plasma urea nitrogen measurement (mass/volume) 16 mg/dL 7-18 Serum or plasma creatinine measurement (mass/volume) 0.76 mg/dL 0.60-1.30 Serum or plasma urea nitrogen/creatinine mass ratio 21 NRG Serum or plasma creatinine measurement with calculation of estimated glomerular filtration rate > NRG Serum or plasma glucose measurement (mass/volume) 83 mg/dL 70-105 Serum or plasma calcium measurement (mass/volume) 9.1 mg/dL 8.5-10.1 Serum or plasma total bilirubin measurement (mass/volume) 0.8 mg/dL 0.1-1.0 Serum or plasma alkaline phosphatase measurement (enzymatic activity/volume) 71 U/L 40-136 Serum or plasma aspartate aminotransferase measurement (enzymatic activity/ volume) 19 U/L 5-34 Serum or plasma alanine aminotransferase measurement (enzymatic activity/volume ) 15 U/L 0-55 Serum or plasma protein measurement (mass/volume) 6.2 g/dL 6.4-8.2 Serum or plasma albumin measurement (mass/volume) 3.7 g/dL 3.2-4.5 Lipid 1996 panel - 05/04/16 08:16 Serum or plasma triglyceride measurement (mass/volume) 76 mg/dL <150 Serum or plasma cholesterol measurement (mass/volume) 193 mg/dL < 200 Serum or plasma cholesterol in HDL measurement (mass/volume) 70 mg/ dL 40-60 Cholesterol in LDL [mass/volume] in serum or plasma by direct assay 102 mg/dL 1-129 Serum or plasma cholesterol in VLDL measurement (mass/volume) 15 mg/ dL 5-40 Methicillin resistant Staphylococcus aureus (MRSA) screening culture - 08:16 Methicillin resistant Staphylococcus aureus (MRSA) screening culture NEG NRG Encounters ACCT No. Visit Date/Time Discharge Status Pt. Type Provider Facility Loc./Unit Complaint [id number] 01/04/2018 10:23:00 01/04/2018 23:59:59 CLS Outpatient BRUNILDA PRICE MD [facility] CARD HTN,PALPITATION [id number] 11/29/2017 09:03:00 11/29/2017 23:59:59 CLS Outpatient ERIC FRY APRN [facility] RAD SCREENING [id number] 09/01/2017 19:59:00 09/02/2017 07:05:00 DIS Outpatient CHRISTOPHER BOLAND APRN [facility] SLEEP JATINDER [id number] 07/05/2017 21:00:00 07/06/2017 06:42:00 DIS Outpatient BRUNILDA PRICE MD [facility] SLEEP JATINDER G47.33 [id number] 06/25/2017 12:41:00 06/25/2017 23:59:59 CLS Outpatient ERIC FRY APRN [facility] RT COPD [id number] 05/21/2017 10:49:00 05/21/2017 23:59:59 CLS Outpatient BRUNILDA PRICE MD [facility] CARD HTN,OBESITY [id number] 04/16/2017 08:12:00 04/16/2017 23:59:59 CLS Outpatient ERIC FRY APRN [facility] RAD 6 MONTH FULLOW-UP ABNORMAL [id number] 04/09/2017 10:22:00 04/09/2017 23:59:59 CLS Preadmit ERIC FRY APRN [facility] RAD 6 MO F/U ABN [id number] 12/23/2016 11:49:00 12/23/2016 23:59:59 CLS Preadmit BRENDEN MCNEIL MD [facility] RAD COUGH [id number] 12/17/2016 14:28:00 12/17/2016 23:59:59 CLS Outpatient BRENDEN MCNEIL MD [facility] RAD COUGH [id number] 10/14/2016 09:31:00 10/14/2016 23:59:59 CLS Outpatient ERIC FRY APRN [facility] RAD ABNORMAL MAMMO [id number] 10/06/2016 10:33:00 10/06/2016 23:59:59 CLS Outpatient BRENDEN MCNEIL MD [facility] RAD SCREENING Z12.31 [id number] 07/09/2016 12:16:00 07/09/2016 23:59:59 CLS Outpatient JUAN JOSE HEDRICK [facility] RAD R10.9 ABD PAIN IN FEMALE [id number] 05/04/2016 07:38:00 05/04/2016 16:03:00 DIS Outpatient BRUNILDA PRICE MD [facility] CATH ABN STRESS TEST,CP [id number] 04/29/2016 08:27:00 04/29/2016 23:59:59 CLS Outpatient BRUNILDA PRICE MD [facility] CARD ABN ECG [id number] 04/17/2016 08:33:00 04/17/2016 23:59:59 CLS Outpatient BRUNILDA PRICE MD [facility] CARD ESSENTIAL HTN, PALPITATION [id number] 04/05/2015 09:57:00 04/05/2015 23:59:59 CLS Outpatient ERIC FRY CAR BRACER [facility] RAD SCREENING [id number] 12/27/2014 13:45:00 12/27/2014 14:38:00 DIS Outpatient ALLIE RHODES CAR BRACER [facility] REHAB LATERAL PATELLAR TILT W / CHONDROMALACIA [id number] 11/08/2014 19:55:00 11/08/2014 23:08:00 DIS Emergency ATIYA COFFEY DO [facility] ER FALL [id number] 09/28/2014 11:05:00 09/28/2014 12:10:00 DIS Outpatient CON DUMONT DO [facility] REHAB LOW BACK PAIN [id number] 07/18/2014 11:48:00 07/18/2014 23:59:59 CLS Outpatient KATHARINE WINSLOW MD [facility] RAD STONE [id number] 06/26/2014 06:05:00 06/26/2014 10:10:00 DIS Outpatient KATHARINE WINSLOW MD [facility] LEFT RENAL STONE [id number] 06/19/2014 12:47:00 06/19/2014 23:59:59 CLS Outpatient KATHARINE WINSLOW MD [facility] PREOP LEFT RENAL STONE [id number] 06/06/2014 08:38:00 06/06/2014 23:59:59 CLS Outpatient KATHARINE WINSLOW MD [facility] RAD RENAL STONES, UTI [id number] 02/16/2014 09:42:00 02/16/2014 23:59:59 CLS Outpatient ERIC FRY APRN [facility] RAD ROUTINE [id number] 01/31/2014 08:30:00 01/31/2014 23:59:59 CLS Outpatient LEXI FUCHS DO [facility] SURG RCR UTI [id number] 01/10/2014 21:09:00 01/10/2014 23:51:00 DIS Emergency KARTHIK MOYER [facility] ER KIDNEY PAIN [id number] 07/14/2013 07:23:00 07/14/2013 23:59:59 CLS Outpatient KATHARINE WINSLOW MD [facility] RAD RENAL STONE [id number] 06/27/2013 06:43:00 06/27/2013 14:08:00 DIS Outpatient KATHARINE WINSLOW MD [facility] LEFT STONE [id number] 06/26/2013 15:08:00 06/26/2013 23:59:59 CLS Outpatient KATHARINE WINSLOW MD [facility] PREOP LEFT STONE [id number] 06/26/2013 11:27:00 06/26/2013 23:59:59 CLS Outpatient KATHARINE WINSLOW MD [facility] RAD RENAL STONE [id number] 06/14/2013 05:59:00 06/14/2013 12:00:00 DIS Outpatient KATHARINE WINSLOW MD [facility] BILATERAL STONES [id number] 06/12/2013 07:47:00 06/12/2013 23:59:59 CLS Outpatient KATHARINE WINSLOW MD [facility] PREOP BILATERAL STONES [id number] 05/31/2013 05:45:00 05/31/2013 16:00:00 DIS Inpatient KATHARINE WINSLOW MD [facility] SURGICAL KIDNEY STONE [id number] 04/22/2013 02:00:00 04/25/2013 09:58:00 DIS Inpatient RAMIRO MCKENZIE, ALEX R [facility] 4TH NAUSEA VOMITING,ABD PAIN,UTI,GENERALIZED WEAKNES [id number] 02/03/2013 11:02:00 03/17/2013 14:33:00 DIS Outpatient MICHAEL MCKENZIE, GEMINI Hendrickson [facility] REHAB L RC TENDONITIS [id number] 03/06/2013 06:00:00 03/08/2013 10:00:00 DIS Inpatient ARLIN JIMÉNEZ MD [facility] SURGICAL CERVICAL STENOSIS [id number] 02/23/2013 09:06:00 02/23/2013 23:59:59 CLS Outpatient ARLIN JIMÉNEZ MD [facility] PREOP CERVICAL STENOSIS [id number] 02/09/2013 14:48:00 02/09/2013 23:59:59 CLS Outpatient ARLIN JIMÉNEZ MD [facility] RAD RT STERNAL CAVICULAR DISLOCATION,CERVICAL STENOSIS [id number] 01/28/2013 16:38:00 01/28/2013 17:56:00 DIS Emergency MELANY OVERTON APRN [facility] ER FALL; NECK PAIN [id number] 04/21/2014 00:00:00 Document Registration [id number] 04/18/2012 09:45:00 Document Registration [id number] 02/12/2012 13:03:00 Document Registration [id number] 02/04/2012 11:36:00 Document Registration [id number] 04/09/2011 12:13:00 Document Registration [email or web address] 11/27/2014 13:22:45 ACT Document Registration
--- NOTE | 2018-02-11 05:09 | NUR ---
Antibiotic continued with transfer of care.
[2018-02-11 05:15] VITALS: BP 122/58
--- NOTE | 2018-02-11 05:15 | NUR ---
CHANCE SPARKS admitted to room 421-1, with an admitting diagnosis of gastroentritis and sepsis, on 02/11/18 from ED via w/c, accompanied by ED staff. CHANCE SPARKS introduced to surroundings, call light, bed controls, phone, TV, temperature control, lights, meal times, smoking policy, visitor policy, side rail policy, bathrooms and showers. Patient Rights given to patient in the handbook. CHANCE SPARKS verbalizes understanding that [facility] is not responsible for the loss or damage to any personal effects or valuables that are kept in the patients posession during their hospitalization. The following Patient Care Plans were discussed with the pt: Discharge Planning, high risk impaired skin integrity and knowledge deficit. CHANCE SPARKS verbalizes understanding of Interdisciplinary Patient Education. Patient and/or family were informed about the Rapid Response Team and its purpose.
--- NOTE | 2018-02-11 05:28 | Diagnostic Imaging Report ---
INDICATION: Shortness of air COMPARISON: 12/17/2016 FINDINGS: Single frontal view of the chest demonstrates moderate cardiomegaly and mild pulmonary vascular congestion. The lungs are well aerated and clear. No large pleural effusion or pneumothorax is seen. The visualized osseous structures show no acute abnormalities. IMPRESSION: 1. Moderate cardiomegaly and mild pulmonary vascular congestion. Dictated by: Dictated on workstation # [id number]
[2018-02-11] MEDS ORDERED: 1/2 NS W/KCL 20 MEQ/L 1,000 ML IV ONE (05:53)
[2018-02-11] MEDS ORDERED: KETOROLAC 15 MG/ML VIAL IVP PRN (06:45)
[2018-02-11] MEDS ORDERED: ACETAMINOPHEN 500 MG TAB (TYLENOL) PO PRN (06:45)
[2018-02-11] MEDS ORDERED: ONDANSETRON 4 MG/2 ML (SDV) Z0FRAN IV PRN (06:45)
[2018-02-11 06:50] LABS: BASOPHILS % (AUTO) 0 % (0-10); EOSINOPHILS # (AUTO) 0.1 10^3/uL (0.0-0.3); EOSINOPHILS % (AUTO) 1 % (0-10); HEMATOCRIT 40 % (35-52); LYMPHOCYTES # (AUTO) 0.2 X 10^3 (1.0-4.0); LYMPHOCYTES % (AUTO) 4 % (12-44); MEAN CORPUSCULAR HEMOGLOBIN 29 PG (25-34); MEAN CORPUSCULAR HGB CONC 32 G/DL (32-36); MEAN CORPUSCULAR VOLUME 91 FL (80-99); MEAN PLATELET VOLUME 10.2 FL (7.4-10.4); MONOCYTES # (AUTO) 0.4 X 10^3 (0.0-1.0); MONOCYTES % (AUTO) 6 % (0-12); NEUTROPHILS # (AUTO) 5.6 X 10^3 (1.8-7.8); NEUTROPHILS % (AUTO) 89 % (42-75); PLATELET COUNT 142 10^3/uL (130-400); RED BLOOD COUNT 4.46 10^6/uL (4.35-5.85); RED CELL DISTRIBUTION WIDTH 14.7 % (10.0-14.5); WHITE BLOOD COUNT 6.3 10^3/uL (4.3-11.0)
[2018-02-11] MEDS: 1/2 NS W/KCL 20 MEQ/L 1,000 ML IV SCH ×2 (07:10→11:54)
[2018-02-11 07:13] LABS: BUN/CREATININE RATIO 26; CARBON DIOXIDE 25 MMOL/L (21-32); CHLORIDE 108 MMOL/L (98-107); CREATININE SERUM 0.68 MG/DL (0.60-1.30); GFR ESTIMATED > 60; GLUCOSE 103 MG/DL (70-105); POTASSIUM 3.7 MMOL/L (3.6-5.0); SODIUM 143 MMOL/L (135-145)
[2018-02-11 08:00] VITALS: BP 124/79
--- NOTE | 2018-02-11 10:54 | History & Physical-Hospitalist ---
History of Present Illness HPI/Chief Complaint CC: Severe gastroenteritis HPI: This is an 88-year-old white female clinic patient of Dr. Hercules who presented to the ER last night with severe osteoarthritis symptoms. She was found to be dehydrated and CT scan showed colitis. Patient is feeling much better did get up and walk with physical therapy and is improving rapidly. She denied any current pain no blood in the stool and no fever. Source: patient Exam Limitations: no limitations Date Seen 02/11/18 Time Seen by a Provider: 10:00 Attending Physician Lori Velazco DO PCP Prudencio Hercules MD Referring Physician Date of Admission Feb 11, 2018 at 04:57 Home Medications & Allergies Home Medications Reviewed patient Home Medication Reconciliation performed by pharmacy medication reconciliations nuclear monitoring technician and/or nursing. Patients Allergies have been reviewed. Allergies Allergies Coded Allergies Sulfa (Sulfonamide Antibiotics) (Unverified Allergy, Mild, 06/14/13) Penicillins (Unverified Allergy, Unknown, NAUSEA, 05/31/13) metronidazole (Unverified Adverse Reaction, Mild, 03/06/13) states caused "growths in mouth" Past Lndafgx-Duebmo-Emxktx Hx Past Med/Social Hx: Reviewed Nursing Past Med/Soc Hx, Reviewed and Corrections made Patient Social History Marrital Status: cohabiting Employed/Student: retired Alcohol Use: Denies Use Recreational Drug Use: No Smoking Status: Never a Smoker Physical Abuse Screen: No Sexual Abuse: No Recent Foreign Travel: No Contact w/other who traveled: No Recent Hopitalizations: No Recent Infectious Disease Expo: No Immunizations Up To Date Tetanus Booster (TDap): Unknown Date of Pneumonia Vaccine: Jan 15, 2015 Date of Influenza Vaccine: Dec 20, 2017 Seasonal Allergies Seasonal Allergies: No Past Medical History Surgeries: Abdominal, Eye Surgery, Hysterectomy, Neurological, Orthopedic, Renal Neurological: Traumatic Brain Injury : No Reproductive: No Sexually Transmitted Disease: No HIV/AIDS: No Female Reproductive Disorders: Denies Hysterectomy Genitourinary: Kidney Stones Gastrointestinal: Abdominal Hernia, Gastroesophageal Reflux Musculoskeletal: Arthritis HEENT: Cataract Loss of Vision: Denies Hearing Impairment: Denies History of Blood Disorders: No Adverse Reaction to Blood Martell: No Family History Cancer 03 MOTHER 09 SISTER Family history: Asthma 03 MOTHER Family history: Cardiovascular disease 09 SISTER Family history: Coronary thrombosis 09 SISTER Family history: Diabetes mellitus 03 FATHER History of - respiratory disease 03 MOTHER 09 BROTHER Review of Systems Constitutional: see HPI, dizziness, weakness EENTM: no symptoms reported Respiratory: no symptoms reported Cardiovascular: no symptoms reported Gastrointestinal: abdominal pain (LLQ), loss of appetite, nausea, vomiting Genitourinary: no symptoms reported Musculoskeletal: no symptoms reported Skin: no symptoms reported Psychiatric/Neurological: No Symptoms Reported All Other Systems Reviewed Negative Unless Noted: Yes Physical Exam Physical Exam Vital Signs Vital Signs - First Documented 02/11/18 01:08 Temp 99.2 Pulse 90 Resp 8 B/P (MAP) 160/84 Pulse Ox 100 O2 Delivery Room Air Capillary Refill : Less Than 3 Seconds Height, Weight, BMI Height: 5'5.00" Weight: 191lbs. 0.0oz. 86.405909no; 31.8 BMI Method:Stated General Appearance: No Apparent Distress, WD/WN, Chronically ill, Other (slow responses baseline) Eyes: Bilateral Eye Normal Inspection, Bilateral Eye PERRL HEENT: PERRL/EOMI, Normal ENT Inspection, Pharynx Normal Neck: Full Range of Motion, Normal Inspection, Non Tender, Supple, Carotid Bruit Respiratory: Chest Non Tender, Lungs Clear, Normal Breath Sounds, No Accessory Muscle Use, No Respiratory Distress Cardiovascular: Regular Rate, Rhythm, No Edema, No Gallop, No JVD, No Murmur, Normal Peripheral Pulses Gastrointestinal: Normal Bowel Sounds, No Organomegaly, No Pulsatile Mass, Non Tender, Soft Back: Normal Inspection, No CVA Tenderness, No Vertebral Tenderness Extremity: Normal Capillary Refill, Normal Inspection, Normal Range of Motion, Non Tender, No Calf Tenderness, No Pedal Edema Neurologic/Psychiatric: Alert, Oriented x3, No Motor/Sensory Deficits, Normal Mood/Affect Skin: Normal Color, Warm/Dry Lymphatic: No Adenopathy Results Results/Procedures Labs Laboratory Tests 02/11/18 01:09 02/11/18 06:37 Patient resulted labs reviewed. Assessment/Plan Admission Diagnosis Assessment: Severe gastroenteritis Dehydration History of traumatic brain injury with baseline slow responses Plan: IVF Ambulate DC soon Admission Status: Observation Diagnosis/Problems Diagnosis/Problems (1) Gastroenteritis and colitis, viral Status: Acute (2) Traumatic brain injury Status: Chronic Qualifiers: Encounter type: sequela Loss of consciousness presence/duration: with LOC of unspecified duration Qualified Codes: S06.9X9S - Unspecified intracranial injury with loss of consciousness of unspecified duration, sequela Clinical Quality Measures DVT/VTE Risk/Contraindication: Risk Factor Score Per Nursin RFS Level Per Nursing on Admit: 4+=Very High LORI VELAZCO DO Feb 11, 2018 10:54
--- NOTE | 2018-02-11 11:10 | Consultation ---
History of Present Illness History of Present Illness Patient Consulted On(leo/time) 02/11/18 11:04 Time Seen by Provider: 10:10 History of Present Illness Surgery asked to consult regarding abdominal pain. HPI per ED: Patient presents to ER by private conveyance with chief complaint that late last night around 9 or 10:00 at night she began to have nausea vomiting and diarrhea with a acute pain in her epigastric region. She's had her gallbladder out before. No other abdominal surgeries. She says that she called her but he was already in the other side of the house sleep so she called ambulance. She wanted to make sure nothing was wrong. She has no history of coronary artery disease but she was having some achiness in her chest last week after she got up out of a chair and again tonight as she was vomiting her chest ached. She denies any fevers chills cough rash or recent constipation. She says her family is been down over the holidays and they all are sick with similar GI bugs. When I saw patient this morning she stated she was doing much better, denied abdominal pain but was still having some diarrhea. She was feeling a little weak but thought she was getting stronger and wanted to go home. Allergies and Home Medications Allergies Coded Allergies: Sulfa (Sulfonamide Antibiotics) (Unverified Allergy, Mild, 06/14/13) Penicillins (Unverified Allergy, Unknown, NAUSEA, 05/31/13) metronidazole (Unverified Adverse Reaction, Mild, 03/06/13) states caused "growths in mouth" Home Medications No Active Prescriptions or Reported Meds Patient Home Medication List Home Medication List Reviewed: Yes Past Gtqfvbk-Ipeebn-Ccudzi Hx Patient Social History Alcohol Use: Denies Use Recreational Drug Use: No Smoking Status: Never a Smoker Recent Foreign Travel: No Contact w/Someone Who Travel: No Recent Infectious Disease Expo: No Recent Hopitalizations: No Physical Abuse Screen: No Sexual Abuse: No Immunizations Up To Date Tetanus Booster (TDap): Unknown Date of Pneumonia Vaccine: Jan 15, 2015 Date of Influenza Vaccine: Dec 20, 2017 Seasonal Allergies Seasonal Allergies: No Surgeries History of Surgeries: Yes (CERVICAL FUSION 5,6,7;BRAIN SURGERY; HERNIA;KIDNEY STONES) Surgeries: Abdominal, Eye Surgery, Hysterectomy, Neurological, Orthopedic, Renal Respiratory History of Respiratory Disorde: No Cardiovascular History of Cardiac Disorders: No Neurological History of Neurological Disord: Yes (BRAIN SURGERY FOR CRANIAL FACIAL NERVE. 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 Genitourinary Genitourinary Disorders: Kidney Stones Gastrointestinal History of Gastrointestinal Di: Yes Gastrointestinal Disorders: Abdominal Hernia, Gastroesophageal Reflux Musculoskeletal History of Musculoskeletal Dis: Yes (LEFT FOOT PROBLEMS, CERIVICAL SPINE SURGERY) Musculoskeletal Disorders: Arthritis Endocrine History of Endocrine Disorders: No HEENT HEENT Disorders: Cataract Loss of Vision: Denies Hearing Impairment: Denies Cancer History of Cancer: No Psychosocial History of Psychiatric Problem: No Integumentary History of Skin or Integumenta: No Blood Transfusions History of Blood Disorders: No Adverse Reaction to a Blood Tr: No Family Medical History Significant Family History: Asthma, CAD Over 55 Years Old, Diabetes, Lung Disease Family Medial History: Cancer 03 MOTHER 09 SISTER Family history: Asthma 03 MOTHER Family history: Cardiovascular disease 09 SISTER Family history: Coronary thrombosis 09 SISTER Family history: Diabetes mellitus 03 FATHER History of - respiratory disease 03 MOTHER 09 BROTHER Review of Systems-General Constitutional: chills, diaphoresis, weakness EENTM: No blurred vision, No double vision, No mouth pain, No mouth swelling, No epistaxis Respiratory: No cough, No dyspnea on exertion, No hemoptysis Cardiovascular: No chest pain, No edema, No palpitations Gastrointestinal: abdominal pain, diarrhea; No jaundice; nausea, vomiting Genitourinary: No dysuria, No frequency, No hematuria Musculoskeletal: joint pain, joint swelling, muscle stiffness Skin: No change in color, No change in hair/nails Psychiatric/Neurological: Denies Anxiety, Denies Depressed, Denies Seizure, Denies Tingling Other pt denies any abnormal bruising or bleeding. Physical Exam-General Problems Physical Exam Vital Signs Vital Signs - First Documented 02/11/18 01:08 Temp 99.2 Pulse 90 Resp 8 B/P (MAP) 160/84 Pulse Ox 100 O2 Delivery Room Air Capillary Refill : Less Than 3 Seconds General Appearance: WD/WN, no apparent distress Eyes: Bilateral Eye PERRL, Bilateral Eye EOMI HEENT: pharynx normal; No scleral icterus (R), No scleral icterus (L), No pale conjunctivae (R), No pale conjunctivae (L) Neck: non-tender; No thyromegaly Respiratory: chest non-tender, lungs clear, normal breath sounds, no respiratory distress, no accessory muscle use Cardiovascular: regular rate, rhythm, no murmur Gastrointestinal: normal bowel sounds, non tender, soft, no organomegaly, no pulsatile mass Back: no CVA tenderness, no vertebral tenderness Extremities: no pedal edema, no calf tenderness, normal capillary refill Neurologic/Psychiatric: 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 operator 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 nml as tested, no motor/sensory deficits, alert, normal mood/affect, oriented x 3 Skin: normal color, warm/dry Lymphatic: no adenopathy (neck, axilla or groin) Data Review Labs Laboratory Tests 02/11/18 01:09: White Blood Count 8.0, Red Blood Count 4.86, Hemoglobin 14.3, Hematocrit 44, Mean Corpuscular Volume 90, Mean Corpuscular Hemoglobin 29, Mean Corpuscular Hemoglobin Concent 33, Red Cell Distribution Width 14.7H, Platelet Count 162, Mean Platelet Volume 10.6H, Neutrophils (%) (Auto) 84H, Lymphocytes (%) (Auto) 5L, Monocytes (%) (Auto) 9, Eosinophils (%) (Auto) 2, Basophils (%) (Auto) 0, Neutrophils # (Auto) 6.7, Lymphocytes # (Auto) 0.4L, Monocytes # (Auto) 0.7, Eosinophils # (Auto) 0.1, Basophils # (Auto) 0.0, Neutrophils % (Manual) 85, Lymphocytes % (Manual) 4, Monocytes % (Manual) 6, Eosinophils % (Manual) 2, Band Neutrophils 3, Blood Morphology Comment NORMAL, Prothrombin Time 14.0, INR Comment 1.1, Activated Partial Thromboplast Time 31, Sodium Level 146H, Potassium Level 4.2, Chloride Level 106, Carbon Dioxide Level 25, Anion Gap 15H , Blood Urea Nitrogen 21H, Creatinine 0.77, Estimat Glomerular Filtration Rate > 60, BUN/Creatinine Ratio 27, Glucose Level 107H, Lactic Acid Level 1.10, Calcium Level 9.2, Corrected Calcium 9.1, Magnesium Level 2.5H, Total Bilirubin 0.8, Aspartate Amino Transf (AST/SGOT) 26, Alanine Aminotransferase (ALT/SGPT) 18, Alkaline Phosphatase 83, Troponin I < 0.30, Total Protein 7.4, Albumin 4.1, Lipase 21 02/11/18 01:39: Glucometer 79 02/11/18 02:44: Urine Color YELLOW, Urine Clarity SLIGHTLY CLOUDY, Urine pH 8, Urine Specific [place] 1.015L, Urine Protein 1+H, Urine Glucose (UA) NEGATIVE, Urine Ketones 2+ H, Urine Nitrite NEGATIVE, Urine Bilirubin NEGATIVE, Urine Urobilinogen 4H, Urine Leukocyte Esterase 1+H, Urine RBC (Auto) 3+H, Urine RBC 5-10H, Urine WBC 0 -2, Urine Squamous Epithelial Cells 0-2, Urine Crystals NONE, Urine Bacteria MODERATEH, Urine Casts NONE, Urine Mucus NEGATIVE, Urine Culture Indicated YES 02/11/18 04:45: Lactic Acid Level 1.24 02/11/18 06:37: White Blood Count 6.3, Red Blood Count 4.46, Hemoglobin 13.0, Hematocrit 40, Mean Corpuscular Volume 91, Mean Corpuscular Hemoglobin 29, Mean Corpuscular Hemoglobin Concent 32, Red Cell Distribution Width 14.7H, Platelet Count 142, Mean Platelet Volume 10.2, Neutrophils (%) (Auto) 89H, Lymphocytes (%) (Auto) 4L , Monocytes (%) (Auto) 6, Eosinophils (%) (Auto) 1, Basophils (%) (Auto) 0, Neutrophils # (Auto) 5.6, Lymphocytes # (Auto) 0.2L, Monocytes # (Auto) 0.4, Eosinophils # (Auto) 0.1, Basophils # (Auto) 0.0, Sodium Level 143, Potassium Level 3.7, Chloride Level 108H, Carbon Dioxide Level 25, Anion Gap 10, Blood Urea Nitrogen 18, Creatinine 0.68, Estimat Glomerular Filtration Rate > 60, BUN/ Creatinine Ratio 26, Glucose Level 103, Calcium Level 8.0L Assessment/Plan Assessment/Plan Assessment/Plan Nausea and Vomiting Diarrhea Abdominal pain These symptoms are most likely due to a viral gastroenteritis. Patient is feeling better with fluids. She was told she does not need any antibiotics and can go home. At home she needs to make sure she drinks lots of fluid and gets her electrolytes as well as protein. Most important thing is to stay hydrated. Patient can follow up in my office if anything changes. Clinical Quality Measures DVT/VTE Risk/Contraindication: Risk Factor Score Per Nursin RFS Level Per Nursing on Admit: 4+=Very High SULEMA GONSALVES DO Feb 11, 2018 11:10
[2018-02-11 12:00] VITALS: BP 121/58
[2018-02-11] MEDS ORDERED: CEFEPIME 1 GM/NS 50 ML IV SCH ×2 (12:00)
--- NOTE | 2018-02-11 12:04 | Physical Therapy Evaluation ---
PT Evaluation-General Medical Diagnosis Admission Date Feb 11, 2018 at 04:57 Medical Diagnosis: stomach ache Onset Date: Feb 11, 2018 Therapy Diagnosis Therapy Diagnosis: debility Height/Weight Height (Feet): 5 Height (Inches): 5.00 Weight (Pounds): 191 Weight (Ounces): 0.0 Precautions Precautions/Isolations: Fall Prevention, Standard Precautions Weight Bear Status Right Lower Extremity: Right Full Weight Bearing Left Lower Extremity: Left Full Weight Bearing Referral Physician: Juan A Reason for Referral: Evaluation/Treatment Medical History Pertinent Medical History: GERD, TBI Current History ED secondary to N & V and diarrhea Reviewed History: Yes Social History Home: Single Level Current Living Status: Spouse Entry Into Home: Stairs With Railing PT Steps Into Home: 2 Prior/Core FIM Prior Level of Function Therapy Code Descriptions/Definitions Functional [place] Measure: 0=Not Assessed/NA 4=Minimal Assistance 1=Total Assistance 5=Supervision or Setup 2=Maximal Assistance 6=Modified [place] 3=Moderate Assistance 7=Complete [place] Therapy Quality Codes: 6 Independent with activity with or without an assistive device 5 Patient requires set up or clean up by helper. Patient completes activity by themselves 4 Supervision or touching assist (CGA). [place] provide cues , steadying assist 3 The helper provides less than half the effort to complete the activity 2 The helper provides more than half the effort to complete the activity 1 Dependent. The helper does all the effort to complete an activity 7 Patient refused to complete or attempt activity 9 The patient did not perform the activity before the current illness or injury 88 Not attempted due to Medical conditions or safety concerns Functional Abilities and Goals: Independent: Patient completed the activities by him/herself, with or without an assistive device, with no assistance from a helper. Needed Some Help: Patient needed partial assistance from another person to complete activities. Dependent: A helper completed the activities for the patient. Unknown: Not Applicable: Bed Mobility: 6 Transfers (B,C,W/C) (FIM): 6 Gait: 6 Stairs: 6 Indoor Mobility (Ambulation): Independent Stairs: Independent Prior Devices Use: Walker (PRN) PT Evaluation-Current Subjective Patient reports she is feeling better. Pain Numeric Pain Scale: 0-No Pain Location: No Pain Reported Objective Patient Orientation: Normal For Age Problem Solving: Fair Attachments: IV ROM/Strength ROM Lower Extremities bilateral LE WFL Strength Lower Extremities 4/5 grossly bilaterally Integumentary/Posture Integumentary refer to nursing notes Bowel Incontinence: No Bladder Incontinence: No Posture WFL Neuromuscular (Tone, Coordination, Reflexes) grossly intact Sensory Vision: Functional Sensation Right Lower Extremit: Intact Sensation Left Lower Extremity: Intact Transfers Therapy Code Descriptions/Definitions Functional [place] Measure: 0=Not Assessed/NA 4=Minimal Assistance 1=Total Assistance 5=Supervision or Setup 2=Maximal Assistance 6=Modified [place] 3=Moderate Assistance 7=Complete [place] Transfers (B, C, W/C) (FIM): 6 Scootin Rollin Supine to/from Sit: 6 Sit to/from Stand: 6 Gait Mode of Locomotion: Walk Anticipated Mode of Locomotion: Walk Gait (FIM): 1 Distance (FIM): 1=up to 49 ft Distance: 30' x 2 Gait Level of Assist: 6 Gait Assistive Device: FWW Comments/Gait Description safe and functional gait sequence Balance Sitting Static: Normal Sitting Dynamic: Normal Standing Static: Normal Standing Dynamic: Normal Assessment/Needs 88 y.o. female, is currently at [facility] with all gross motor skills and does not require skilled therapy intervention at this time. Rehab Potential: Good PT Plan Treatment/Plan Treatment Plan: Discontinue PT, goals met Treatment Plan: Other Treatment Duration: Feb 11, 2018 Frequency: 1 time per week Estimated Hrs Per Day: .25 hour per day Patient and/or Family Agrees t: Yes Time/GCodes Time In: 1130 Time Out: 1145 Total Billed Treatment Time: 15 Total Billed Treatment 1 visit EVModC 15 min G Codes Necessary: Yes PT/OT Therapy GCodes Therapy Functional Limitation: Physical Therapy Test(s)/Tool used to determine: Level of Assistance Scale Functional Limitation-Current Charge Code: MOBCUR Modifier: CI Functional Limitation-Goal Charge Code: MOBGOAL Modifier: CI Functional Limitation-D/C Charge Codes: MOBDC Modifier: CI KIM ESQUIVEL PT Feb 11, 2018 12:04
--- NOTE | 2018-02-11 14:53 | NUR ---
NOTE THAT PT VOICED SHE WANTED TO LEAVE --THIS RN CALLED DR BULL AND LEFT MESSAGE --THEN PT VOICED SHE NEEDED HER CLOTHES -- ER WAS CALLED TO SEE IGF THEY HAD HER CLOTHES
--- NOTE | 2018-02-11 14:55 | Occupational Therapy Eval ---
OT Evaluation-General/PLF Medical Diagnosis Admission Date Feb 11, 2018 at 04:57 Medical Diagnosis: stomach ache Onset Date: Feb 11, 2018 Therapy Diagnosis Therapy Diagnosis: debility Height/Weight Height (Feet): 5 Height (Inches): 5.00 Weight (Pounds): 191 Weight (Ounces): 0.0 Precautions Precautions/Isolations: Fall Prevention, Standard Precautions Safety Interventions: Bed Exit Alarm Referral Physician: Juan A Medical History Pertinent Medical History: GERD, TBI Additional Medical History TBI, kidney stones, abdominal hernia, cervical spine surgery Current History Pt came to hospital secondary to nausea, vomiting, and diarrhea Social History Home: Single Level Current Living Status: Spouse Entry Into Home: Stairs With Railing Steps Into Home: 2 ADL-Prior Level of Function Therapy Code Descriptions/Definitions Functional [place] Measure: 0=Not Assessed/NA 4=Minimal Assistance 1=Total Assistance 5=Supervision or Setup 2=Maximal Assistance 6=Modified [place] 3=Moderate Assistance 7=Complete [place] Therapy Quality Codes: 6 Independent with activity with or without an assistive device 5 Patient requires set up or clean up by helper. Patient completes activity by themselves 4 Supervision or touching assist (CGA). [place] provide cues , steadying assist 3 The helper provides less than half the effort to complete the activity 2 The helper provides more than half the effort to complete the activity 1 Dependent. The helper does all the effort to complete an activity 7 Patient refused to complete or attempt activity 9 The patient did not perform the activity before the current illness or injury 88 Not attempted due to Medical conditions or safety concerns Functional Abilities and Goals: Independent: Patient completed the activities by him/herself, with or without an assistive device, with no assistance from a helper. Needed Some Help: Patient needed partial assistance from another person to complete activities. Dependent: A helper completed the activities for the patient. Unknown: Not Applicable: Self Care: Independent Functional Cognition: Independent DME/Equipment: Shower, Tub/Shower Drive Self: Yes OT Current Status Subjective Pt in bed, agrees to therapy. Pt states she is feeling better and would like to go home. Mental Status/Objective Patient Orientation: Person, Place Attachments: IV Current Hearing Aids: No Dentures/Partials: No Hand Dominance: Right Upper Extremity ROM Grossly WFL Upper Extremity Coordination Intact Upper Extremity Sensation Intact per pt report Upper Extremity Strength Grossly WFL ADL-Treatment ADL-Current Pt resting in bed, has some difficulty with supine to sit and requests assist to complete. Pt states she has no difficulty with this at home. Pt sit to stand with modified independence. Gait to restroom with FWW, slow pace. Pt transferred to toilet using grab bars for safety. Pt able to complete toileting hygiene. Stood at sink to wash hands without assistance. Pt returned to EOB with slow pace. While sitting EOB pt demonstrated ability to doff socks with SBA. Requires minimal assistance to don socks. Pt states she has no difficulty with this task at home, but often doesn't wear socks. Pt states she does not have any other clothing available at this time. Pt sit to supine with SBA. Pt resting in bed with needs met after session. Therapy Code Descriptions/Definitions Functional [place] Measure: 0=Not Assessed/NA 4=Minimal Assistance 1=Total Assistance 5=Supervision or Setup 2=Maximal Assistance 6=Modified [place] 3=Moderate Assistance 7=Complete [place] Therapy Quality Codes: 6 Independent with activity with or without an assistive device 5 Patient requires set up or clean up by helper. Patient completes activity by themselves 4 Supervision or touching assist (CGA). [place] provide cues , steadying assist 3 The helper provides less than half the effort to complete the activity 2 The helper provides more than half the effort to complete the activity 1 Dependent. The helper does all the effort to complete an activity 7 Patient refused to complete or attempt activity 9 The patient did not perform the activity before the current illness or injury 88 Not attempted due to Medical conditions or safety concerns Education OT Patient Education: Rehab process, Safety issues Teaching Recipient: Patient Teaching Methods: Discussion Response to Teaching: Verbalize Understanding OT Short Term Goals Short Term Goals 1=Demonstrate adherence to instructed precautions during ADL tasks. 2=Patient will verbalize/demonstrate understanding of assistive devices/ modifications for ADL. 3=Patient will improve strength/tolerance for activity to enable patient to perform ADL's. 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 2=Patient will verbalize/demonstrate understanding of assistive devices/ modifications for ADL. 3=Patient will improve strength/tolerance for activity to enable patient to perform ADL's. OT Education/Plan Problem List/Assessment Assessment: Impaired Self-Care Skills Discharge Recommendations Plan/Recommendations: Continue POC Treatment Plan/Plan of Care Treatment,Training & Education: Yes Patient would benefit from OT for education, treatment and training to promote independence in ADL's, mobility, safety and/or upper extremity function for ADL' s. Plan of Care: ADL Retraining, Functional Mobility Treatment Duration: Feb 16, 2018 Frequency: 5 times per week Estimated Hrs Per Day: .25 hour per day Rehab Potential: Good Time/GCodes Start Time: 14:22 Stop Time: 14:40 Total Time Billed (hr/min): 18 Billed Treatment Time 1 visit, EVM(18minutes) PT/OT Therapy GCodes Therapy Functional Limitation: Occupational Therapy Test(s)/Tool used to determine: Level of Assistance Scale Functional Limitation-Current Charge Code: SELFCUR Modifier: CJ Functional Limitation-Goal Charge Code: SELFGOAL Modifier: PRASANTH FRIED OT Feb 11, 2018 14:55
--- NOTE | 2018-02-11 15:10 | NUR ---
NOTE THAT PT VOICED HER CLOTHES AND COAT DID NOT MAKE IT TO HER [facility] ER WAS CALLED AND THEY WILL [facility]JEDA FOR IT
[2018-02-11 15:54] VITALS: BP 121/58
== END 2018-02-11 12:16 | disposition home or self-care (01) ==
LOC: EDUNIT# 01:04 → ER 01:05 → 4TH 04:57 → UNDOADMOB 04:57 → 4TH 05:15 → UNDODISOB 15:45
PROVIDERS: ADMIT Internal Medicine; ATTEND Internal Medicine
DX: A08.4 Viral intestinal infection, unspecified (principal); E86.0 Dehydration; K21.9 Gastro-esophageal reflux disease without esophagitis; S06.9X9S Unspecified intracranial injury with loss of consciousness of unspecified duration, sequela; Z87.820 Personal history of traumatic brain injury; Z87.442 Personal history of urinary calculi; Z88.2 Allergy status to sulfonamides; Z88.1 Allergy status to other antibiotic agents; Z98.1 Arthrodesis status
CPT/HCPCS: 36415; 71045; 80048; 80053; 81000; 82962; 83605; 83690; 83735; 84484; 85007; 85025; 85027; 85610; 85730; 87040; 87077; 87088; 87186; 93005; 96361; 96365; 96375; G0378

== ENCOUNTER → 2020-01-05 | Outpatient (CLI) | payer MEDICARE, OTHER ==
[~2020-01-05] MED LIST changes: +ONDA4TAB11 PO
== END ==
LOC: LABNPT 06:47
PROVIDERS: ATTEND Internal Medicine
DX: R05 Cough (principal); R53.83 Other fatigue; Z53.9 Procedure and treatment not carried out, unspecified reason

== ENCOUNTER → 2020-01-10 | Outpatient (CLI) | payer MEDICARE, OTHER | LOC: LABNPT 08:51 | PROVIDERS: ATTEND Internal Medicine | DX: R05 Cough (principal); R53.83 Other fatigue; Z20.828 Contact with and (suspected) exposure to other viral communicable diseases | CPT/HCPCS: 87635 ==